=== PATIENT | female | born 1930 | race Caucasian/White ===

== ENCOUNTER → 2016-11-29 | Outpatient (CLI) | payer MEDICARE ==
[~2016-11-29] MED LIST: ALPR.25 PO; ASPI1TAB73 PO; AUGM500T7 PO; CENTTAB PO; LACTCAP8 PO; MACR100C2 PO; OMEP20TA PO; REST15CA PO; THERTAB27 PO
[2016-11-29 09:39] LABS: HEMATOCRIT 39.9 % (35.0-46.0); MEAN CELL VOLUME 90.1 FL (80.0-100.0); MEAN CORPUSCULAR HEMOGLOBIN 30.1 PG (27.0-34.0); MEAN CORPUSCULAR HGB CONC 33.4 % (32.0-36.0); PLATELET COUNT 203 TH/MM3 (150-450); RED BLOOD COUNT 4.43 MIL/MM3 (4.00-5.30); REVIEW FLAG FINAL; WHITE BLOOD COUNT 4.6 TH/MM3 (4.0-11.0)
[2016-11-29 10:08] LABS: ALKALINE PHOSPHATASE 76 U/L (45-117); ALT (GPT) 22 U/L (10-53); ANION GAP 8 MEQ/L (5-15); AST (GOT) 27 U/L (15-37); BICARBONATE 25.7 MEQ/L (21.0-32.0); BLOOD UREA NITROGEN 18 MG/DL (7-18); CHLORIDE 104 MEQ/L (98-107); GLOMERULAR FILTRATION RATE 53 ML/MIN (>89); GLUCOSE,FASTING 94 MG/DL (74-99); HDL CHOLESTEROL 87.9 MG/DL (40.0-60.0); LDL CHOLESTEROL 150 MG/DL (0-99); LDL CHOLESTEROL DIRECT 155 MG/DL (0-99); POTASSIUM 3.9 MEQ/L (3.5-5.1); SODIUM (NA) 138 MEQ/L (136-145); TOTAL BILIRUBIN ADULT 0.7 MG/DL (0.2-1.0)
== END ==
LOC: PLAB 06:44
PROVIDERS: ATTEND Internal Medicine
DX: I10 Essential (primary) hypertension (principal); E78.5 Hyperlipidemia, unspecified
CPT/HCPCS: 36415; 80053; 80061; 83721; 85027

== ENCOUNTER 2017-03-23 08:37 | Inpatient (IN) | payer MEDICARE ==
[~2017-03-23] VITALS: Ht 162.6 cm; Wt 73.0 kg
[2017-03-23] VITALS (11 sets, daily range): BP systolic 141–169; BP diastolic 63–91; PULSE 70–113; RESP 18–20; TEMP 98.8–99.9; O2SAT 91–98
[~2017-03-23 08:37] MED LIST changes: -ALPR.25 PO; -AUGM500T7 PO; -MACR100C2 PO; -REST15CA PO
[2017-03-23] MEDS ORDERED: MACR100C2 PO (08:42)
--- NOTE | 2017-03-23 08:55 | PD ---
HPI Chief Complaint: Allergic/Adverse Reaction Time Seen by Provider: 08:47 Travel History International Travel<30 days: No Contact w/Intl Traveler<30days: No Traveled to known affect area: No History of Present Illness HPI 87yo F with PMH of multiple allergies presents to the ED with c/o shakiness this morning. Pt has nausea and feels stressed. States her daughters were landing from [place] and she is nervous about it. Pt was started on nitrofurantoin yesterday for a UTI diagnosed in the PMD's office. Denies any fever, chest pain, sob, vomiting, abdominal pain, focal weakness or numbness. Pt has been here for shakiness before and has that as an adverse reaction to some medications. 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 UTI) Hepatitis: No Hiatal Hernia: Yes Immune Disorder: No Musculoskeletal: Yes (ARTHRITIS) Neurologic: Yes (TRANSIENT VERTIGO/ SYNCOPE) Psychiatric: Yes (CLAUSTROPHOBIA) Respiratory: Yes (TRANSIENT SOB, ? SLEEP APNEA) Thyroid Disease: No ?: Not Menopausal: Yes Dilation and Curettage (D&C): Yes (1993) Past Surgical History Abdominal Surgery: Yes (RIGHT HEMICOLECTOMY) AICD: No Appendectomy: Yes Body Medical Devices: N/A Cardiac Surgery: No Endocrine Surgery: No Eye Surgery: Yes (RIGHT CATARACT EXTRACT.) Genitourinary Surgery: Yes (LEFT ESWL) Gynecologic Surgery: Yes (D & C) Joint Replacement: No Oral Surgery: Yes (T & A) Pacemaker: No Thoracic Surgery: No Tonsillectomy: Yes Other Surgery: Yes (RT BREAST LUMPECTOMY) Social History Alcohol Use: Yes (RARELY) Tobacco Use: No Substance Use: No Allergies-Medications (Allergen,Severity, Reaction): Coded Allergies: Celestina (Unverified Allergy, Severe, SEVERE HEADACHES, 03/23/17) Cipro (Unverified Allergy, Severe, RASH, VERTIGO, 03/23/17) Claritin (Unverified Allergy, Severe, SEVERE HEADACHES, 03/23/17) Fentanyl (Verified Allergy, Severe, 03/23/17) DENIES ALLERGY 11/28/11 Meperidine (Verified Allergy, Severe, 03/23/17) Lexapro (Verified Allergy, Intermediate, TREMORS, ARMS & LEGS, 03/23/17) Remeron Sarah-Tab (Verified Allergy, Intermediate, TREMORS ARMS & LEGS, 03/23) Ceftin (Verified Allergy, Mild, N/V, 03/23/17) Codeine (Verified Allergy, Mild, N/V, 03/23/17) Percocet (Verified Allergy, Mild, N/V, 03/23/17) Reported Meds & Prescriptions Reported Meds & Active Scripts Active Reported Macrobid (Nitrofurantoin Monoh/Nitrofur Macro) 100 Mg Cap 100 Mg PO BID Probiotic (Lactobacillus Acidophilus) 1 Cap Cap 1 Cap PO DAILY Spencer Aspirin EC Low Dose (Aspirin) 81 Mg Tabdr 81 Mg PO DAILY PRN Omeprazole 20 Mg Tab 20 Mg PO DAILY Review of Systems Except as stated in HPI: all other systems reviewed are Neg Physical Exam Narrative GENERAL: 87yo F in mild distress. SKIN: Focused skin assessment warm/dry. No urticaria. HEAD: Atraumatic. Normocephalic. EYES: Pupils equal and round. EOMI. No scleral icterus. No injection or drainage. ENT: No nasal bleeding or discharge. Mucous membranes pink and moist. Patent airway. No tongue edema. NECK: Trachea midline. No JVD. CARDIOVASCULAR: Mildly tachycardic at 110bpm. No murmur appreciated. RESPIRATORY: No accessory muscle use. Clear to auscultation. Breath sounds equal bilaterally. GASTROINTESTINAL: Abdomen soft, TTP LLQ and suprapubic region. No rebound tenderness or guarding. MUSCULOSKELETAL: No obvious deformities. No clubbing. No cyanosis. No edema. NEUROLOGICAL: Awake and alert. No obvious cranial nerve deficits. Motor grossly within normal limits. Normal speech. AAOx3. Bilateral upper extremity tremors with movement, appears voluntary. No tremors at rest. PSYCHIATRIC: Anxious appearing. Data Data Last Documented VS Vital Signs Date Time Temp Pulse Resp B/P Pulse Ox O2 Delivery O2 Flow Rate FiO2 03/23/17 10:51 99.9 99 18 161/79 98 Nasal Cannula 2 Orders Complete Blood Count With Diff (03/23/17 08:47) Prothrombin Time / Inr (Pt) (03/23/17 08:47) Act Partial Throm Time (Ptt) (03/23/17 08:47) Urinalysis - C+S If Indicated (03/23/17 08:47) Ct Abd/Pel W Iv Contrast(Rout) (03/23/17 08:47) Iv Access Insert/Monitor (03/23/17 08:47) Ecg Monitoring (03/23/17 08:47) Oximetry (03/23/17 08:47) Ondansetron Inj (Zofran Inj) (03/23/17 09:00) Sodium Chloride 0.9% Flush (Ns Flush) (03/23/17 09:00) Electrocardiogram (03/23/17 08:47) Sodium Chlorid 0.9% 500 Ml Inj (Ns 500 M (03/23/17 09:00) Lactic Acid Sepsis Protocol (03/23/17 08:48) Ckmb (Isoenzyme) Profile (03/23/17 08:48) Troponin I (03/23/17 08:48) Comprehensive Metabolic Panel (03/23/17 08:55) Lipase (03/23/17 08:55) Chest, Single Ap (03/23/17 ) Ct Pulmonary Angiogram (03/23/17 ) Urine Culture (03/23/17 09:15) CKMB (03/23/17 08:55) CKMB% (03/23/17 08:55) Aztreonam Inj (Azactam Inj) (03/23/17 11:00) Iohexol 350 Inj (Omnipaque 350 Inj) (03/23/17 11:15) Admit Order (Ed Use Only) (03/23/17 11:27) Labs Laboratory Tests Test 03/23/17 03/23/17 08:55 09:15 White Blood Count 12.1 TH/MM3 Red Blood Count 4.61 MIL/MM3 Hemoglobin 13.7 GM/DL Hematocrit 40.5 % Mean Corpuscular Volume 87.9 FL Mean Corpuscular Hemoglobin 29.8 PG Mean Corpuscular Hemoglobin 33.9 % Concent Red Cell Distribution Width 13.5 % Platelet Count 175 TH/MM3 Mean Platelet Volume 7.2 FL Neutrophils (%) (Auto) % Lymphocytes (%) (Auto) % Monocytes (%) (Auto) % Eosinophils (%) (Auto) % Basophils (%) (Auto) % Neutrophils # (Auto) TH/MM3 Lymphocytes # (Auto) TH/MM3 Monocytes # (Auto) TH/MM3 Eosinophils # (Auto) TH/MM3 Basophils # (Auto) TH/MM3 CBC Comment AUTO DIFF Differential Total Cells 100 Counted Neutrophils % (Manual) 81 % Band Neutrophils % 14 % Lymphocytes % 3 % Monocytes % 2 % Neutrophils # (Manual) 11.5 TH/MM3 Differential Comment FINAL DIFF MANUAL Platelet Estimate NORMAL Platelet Morphology Comment NORMAL Red Cell Morphology Comment NORMAL Prothrombin Time 9.7 SEC Prothromb Time International 0.9 RATIO Ratio Activated Partial 22.9 SEC Thromboplast Time Sodium Level 137 MEQ/L Potassium Level 3.9 MEQ/L Chloride Level 100 MEQ/L Carbon Dioxide Level 25.5 MEQ/L Anion Gap 10 MEQ/L Blood Urea Nitrogen 17 MG/DL Creatinine 0.70 MG/DL Estimat Glomerular Filtration 79 ML/MIN Rate Random Glucose 127 MG/DL Lactic Acid Level 2.7 mmol/L Calcium Level 9.0 MG/DL Total Bilirubin 0.9 MG/DL Aspartate Amino Transf 41 U/L (AST/SGOT) Alanine Aminotransferase 32 U/L (ALT/SGPT) Alkaline Phosphatase 91 U/L Total Creatine Kinase 140 U/L Creatine Kinase MB 1.4 NG/ML Troponin I LESS THAN 0.02 NG/ML Total Protein 7.2 GM/DL Albumin 3.9 GM/DL Lipase 109 U/L Urine Collection Type CLEAN CATCH Urine Color YELLOW Urine Turbidity CLEAR Urine pH 7.0 Urine Specific [place] 1.014 Urine Protein NEG mg/dL Urine Glucose (UA) NEG mg/dL Urine Ketones NEG mg/dL Urine Occult Blood TRACE Urine Nitrite NEG Urine Bilirubin NEG Urine Leukocyte Esterase TRACE Urine WBC 9-14 /hpf Urine WBC Clumps RARE Urine Squamous Epithelial 0-5 /hpf Cells Urine Amorphous Sediment FEW Urine Bacteria OCC /hpf Microscopic Urinalysis Comment CULTURE INDICATED Urine Collection Time 0914 MDM Medical Decision Making Medical Screen Exam Complete: Yes Emergency Medical Condition: Yes Interpretation(s) EKG: Sinus tachycardia at 101bpm. LAD. No ST segment elevation or depression. Differential Diagnosis Anxiety vs. sepsis vs. medication reaction Narrative Course 87yo F with c/o shakiness and nausea and not feeling well today. Pt is a poor historian. Denies abdominal pain but states it is tender and winces on exam. Pt's saturating on room air fluctuates but does not go higher than 94%. Will obtain CT angio to r/o PE. Pt does not complain of sob or chest pain. Labs reviewed, leukocytosis at 12.1. Bandemia of 14. Lactic acid elevated at 2.7. Troponin negative. UA positive for WBC 9-14. Occasional urine bacteria. CXR showed minimal basal atelectasis. CT angio showed negative for PE. Mild bronchiectasis with peribronchial thickening. Minimal distal airway disease. Mildly decreased saturation may be due to bronchiectasis. CTa/p showed very mild prominence of renal collecting systems bilaterally without evidence of hydroureter. Uncertain clinical significance. No active findings. Pt given 500cc of IVF NS and heart rate was improved to 100bpm. However, it is now up at 114bpm. Will give another liter of NS IVF. Pt given aztreonam IV because of her allergies. Discussed with Dr. Crane and accepted for urosepsis. Critical Care Narrative Aggregate critical care time was 60 minutes. Time to perform other separately billable procedures was not included in the critical care time. My time did not include minutes spent treating any other patients simultaneously or on activities that did not directly contribute to the patient's treatment. The services I provided to this patient were to treat and/or prevent clinically significant deterioration that could result in: cardiovascular collapse or . I provided critical care services requiring my management, as noted below: Chart data review, documentation time, medication orders and management, vital sign assessments/reviewing monitor data, ordering and reviewing lab tests, ordering and interpreting/reviewing x-rays and diagnostic studies, care of the patient and discussion of the patient with the admitting physicians. Sepsis Criteria SIRS Criteria (2 or more): Heart rate over 90, WBC > 86637, < 4000 or > 10% bands Sepsis Criteria (SIRS+source): Infect source susp/known Severe Sepsis (+one): Lactate >2 Diagnosis Primary Impression: Sepsis Qualified Code: A41.9 - Sepsis, due to unspecified organism Admitting Information Admitting Physician Requests: Kaelyn Weller DO Mar 23, 2017 08:55
[2017-03-23] MEDS ORDERED: SODIUM CHLORID 0.9% 500 ML INJ 500 ML IV ONE (09:00)
[2017-03-23] MEDS ORDERED: ONDANSETRON HCL 4 MG/2 ML VIAL IVP ONE (09:00)
[2017-03-23] MEDS ORDERED: SODIUM CHLORIDE 0.9% FLUSH 10 ML FLUSH IV FLUSH PRN ×2 (09:00→11:45)
[2017-03-23 09:14] LABS: HEMATOCRIT 40.5 % (35.0-46.0); MEAN CELL VOLUME 87.9 FL (80.0-100.0); MEAN CORPUSCULAR HEMOGLOBIN 29.8 PG (27.0-34.0); MEAN CORPUSCULAR HGB CONC 33.9 % (32.0-36.0); PLATELET COUNT 175 TH/MM3 (150-450); RED BLOOD COUNT 4.61 MIL/MM3 (4.00-5.30); RED CELL DISTRIBUTION WIDTH 13.5 % (11.6-17.2); WHITE BLOOD COUNT 12.1 TH/MM3 (4.0-11.0)
[2017-03-23 09:16] LABS: HEMO FLAGS AUTO DIFF
[2017-03-23 09:22] LABS: BLOOD, URINE TRACE (NEG); GLUCOSE,URINE NEG (NEG); KETONE, URINE NEG (NEG); NITRITE,URINE NEG (NEG)
[2017-03-23 09:23] LABS: APTT (PATIENT) 22.9 SEC (24.3-30.1); INTERNATIONAL NORMALIZED RATIO 0.9 RATIO; PROTHROMBIN TIME - PATIENT 9.7 SEC (9.8-11.6)
[2017-03-23 09:24] LABS: METHOD OF COLLECTION CLEAN CATCH; URINE COLOR YELLOW (YELLW/STRAW)
[2017-03-23 09:30] LABS: BACTERIA, URINE OCC /hpf; COMMENT (UR) CULTURE INDICATED; COMMENT2 (UR) MUCOUS PRESENT; CULTURE IF INDICATED CULTURE INDICATED; SQUAMOUS EPITHELIAL CELL URINE 0-5 /hpf (0-5)
[2017-03-23 09:46] LABS: BLOOD UREA NITROGEN 17 MG/DL (7-18); CHLORIDE 100 MEQ/L (98-107); GLOMERULAR FILTRATION RATE 79 ML/MIN (>89); POTASSIUM 3.9 MEQ/L (3.5-5.1); SODIUM (NA) 137 MEQ/L (136-145)
--- NOTE | 2017-03-23 09:46 | RADRPT ---
EXAM DATE/TIME: 03/23/2017 09:26 [facility] COMPARISON: No previous studies available for comparison. INDICATIONS : Short of breath, weakness. nausea. MEDICAL HISTORY : Hypercholesterolemia. Carcinoma, breast. Gastroesophageal reflux disease. Arthritis. Sleep apnea, Hiatal hernia. SURGICAL HISTORY : Appendectomy. Tonsillectomy. Right breast lumpectomy. D&C. Right hemicolectomy. ENCOUNTER: Initial ACUITY: 2 days PAIN SCORE: 0/10 LOCATION: chest FINDINGS: A single view of the chest demonstrates the lungs to be symmetrically aerated without evidence of mas s, infiltrate or effusion. Minimal basal atelectasis. The cardiomediastinal contours are unremarkabl e. Osseous structures are intact. CONCLUSION: 1. Minimal basal atelectasis. No consolidation or effusion. Surgical clips right axillary region. Krzysztof Amador MD on March 23, 2017 at 9:42 Board Certified Radiologist. This report was verified electronically.
[2017-03-23 09:55] LABS: BANDS 14 % (0-6); NEUTROPHIL # MANUAL DIFF 11.5 TH/MM3 (1.8-7.7); PLATELET ESTIMATE SMEAR NORMAL (NORMAL); PLATELET MORPHOLOGY NORMAL (NORMAL); POLYS (SEG NEUTROPHILS) 81 % (16-70); SCAN/DIFF FINAL DIFF MANUAL; WBC DIFF SAMPLE 100
[2017-03-23 10:12] LABS: BICARBONATE 25.5 MEQ/L (21.0-32.0)
[2017-03-23 10:14] LABS: ALT (GPT) 32 U/L (10-53); ANION GAP 10 MEQ/L (5-15)
[2017-03-23 10:16] LABS: TOTAL BILIRUBIN ADULT 0.9 MG/DL (0.2-1.0)
[2017-03-23 10:17] LABS: ALKALINE PHOSPHATASE 91 U/L (45-117); CREATINE KINASE 140 U/L (26-192)
[2017-03-23 10:23] LABS: AST (GOT) 41 U/L (15-37)
[2017-03-23 10:42] LABS: CKMB 1.4 NG/ML (0.5-3.6)
--- NOTE | 2017-03-23 10:59 | RADRPT ---
EXAM DATE/TIME: 03/23/2017 10:27 [facility] COMPARISON: No previous studies available for comparison. INDICATIONS : Hypoxic. IV CONTRAST: 85 cc Omnipaque 350 (iohexol) IV ; Cumulative dose for multiple exams. RADIATION DOSE: 16.07 CTDIvol (mGy) MEDICAL HISTORY : Carcinoma, breast. Gastroesophageal reflux disease. Hernia, hiatal.Renal stone. SURGICAL HISTORY : Appendectomy. Mastectomy, right. ENCOUNTER: Initial ACUITY: 1 day PAIN SCALE: 0/10 LOCATION: chest TECHNIQUE: Volumetric scanning of the chest was performed using a pulmonary embolism protocol MIP images were re constructed. Using automated exposure control and adjustment of the mA and/or kV according to patien t size, radiation dose was kept as low as reasonably achievable to obtain optimal diagnostic quality images. FINDINGS: No filling defects identified to suggest pulmonary embolus. There is a calcified granuloma in the rig ht upper lobe. There is mild cylindrical bronchiectasis and peribronchial thickening especially in th e lobe but also in the right middle lobe. Calcified granuloma also present left lower lobe. No signif icant lung consolidation. A pleuropericardial effusion. No hilar, mediastinal axillary adenopathy. Ferreira rgical clips present in the right axillary region. His previous lumpectomy changes in the right breas t. Moderate coronary calcifications. Small hiatal hernia. No acute findings in the upper abdomen. CONCLUSION: 1. Negative for pulmonary embolus. 2. Mild bronchiectasis with peribronchial thickening. Minimal distal airway disease. No effusions or adenopathy. 3. Moderate to severe coronary calcifications. Krzysztof Amador MD on March 23, 2017 at 10:52 Board Certified Radiologist. This report was verified electronically.
[2017-03-23] MEDS ORDERED: AZTREONAM INJ 1,000 MG in SODIUM CHLORIDE 0.9% INJ 100 ML IV ONE (11:00)
[2017-03-23 11:04] LABS: LACTIC ACID GHOST NOT REPORTABLE
[2017-03-23] MEDS ORDERED: IOHEXOL 350 MG/ML 10 ML VIAL (for RAD DIAG) IV ONE (11:15)
[2017-03-23] MEDS ORDERED: SODIUM CHLOR 0.9% 1000 ML INJ 1,000 ML IV ONE (11:30)
--- NOTE | 2017-03-23 11:33 | RADRPT ---
EXAM DATE/TIME: 03/23/2017 10:27 [facility] COMPARISON: No previous studies available for comparison. INDICATIONS : Abdominal pain. General weakness. IV CONTRAST: 85 cc Omnipaque 350 (iohexol) IV ; Cumulative dose for multiple exams. ORAL CONTRAST: No oral contrast ingested. RADIATION DOSE: 19.86 CTDIvol (mGy) MEDICAL HISTORY : Carcinoma, breast. Gastroesophageal reflux disease. Hernia, hiatal.Renal stone. SURGICAL HISTORY : Appendectomy. Mastectomy, right. ENCOUNTER: Initial ACUITY: 2 days PAIN SCALE: 2/10 LOCATION: Abdomen TECHNIQUE: Volumetric scanning of the abdomen and pelvis was performed. Using automated exposure control and ad justment of the mA and/or kV according to patient size, radiation dose was kept as low as reasonably achievable to obtain optimal diagnostic quality images. FINDINGS: LOWER LUNGS: Calcified pleural plaque at the right lung base. Minimal bibasilar atelectasis. LIVER: Homogeneous density without lesion. There is no dilation of the biliary tree. Multiple small layerin g gallstones in the gallbladder which otherwise appears unremarkable by CT. SPLEEN: Normal size without lesion. PANCREAS: Within normal limits. KIDNEYS: Kidneys demonstrate symmetrical enhancement. There is slight prominence of the renal collecting syste ms and bilaterally, right more than left. The proximal ureters appear normal in caliber. There are no radiopaque renal calculi. Multiple bilateral small hypodense cystic lesions are too small to fully c haracterize. ADRENAL GLANDS: Within normal limits. VASCULAR: There is no aortic aneurysm. Abdominal aorta is heavily calcified with heavy calcified visceral branc h vessels. BOWEL/MESENTERY: Postsurgical features of prior appendectomy. There is mild sigmoid diverticulosis without significant inflammatory changes to suggest diverticulitis. The bowel appears grossly unremarkable. ABDOMINAL WALL: Within normal limits. RETROPERITONEUM: There is no lymphadenopathy. BLADDER: No wall thickening or mass. REPRODUCTIVE: Within normal limits for age. INGUINAL: There is no lymphadenopathy or hernia. 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 No focal abnormal lytic or blastic lesion. There is an apparent neurostimulator with battery pack in the right gluteal region. CONCLUSION: 1. Very mild prominence of the renal collecting systems bilaterally without evidence for hydroureter. This may reflect residual pelviectasis if patient has a history of prior hydronephrosis. Otherwise, this is of uncertain clinically significance. Clinical correlation is recommended. 2. Otherwise, no definitive findings to explain patient's symptoms. 3. Ancillary findings include cholelithiasis, mild sigmoid diverticulosis and degenerative spondylosi s of the lumbar spine. Mau Boo MD on March 23, 2017 at 11:12 Board Certified Radiologist. This report was verified electronically.
[2017-03-23] MEDS ORDERED: ASPIRIN EC 81 MG TABEC PO PRN (11:45)
[2017-03-23] MEDS ORDERED: MAGNESIUM HYDROXIDE SUSP 30 ML CUP PO PRN (11:45)
[2017-03-23] MEDS ORDERED: ONDANSETRON HCL 4 MG/2 ML VIAL IV PRN (11:45)
[2017-03-23] MEDS ORDERED: CALCIUM CARBONATE 500 MG CHEWABLE TAB CHEW PRN (11:45)
[2017-03-23] MEDS ORDERED: ACETAMINOPHEN 325 MG TAB PO PRN (11:45)
[2017-03-23] MEDS ORDERED: ACETAMINOPHEN 500 MG CPLT PO ONE (11:45)
[2017-03-23] MEDS: SODIUM CHLOR 0.9% 1000 ML INJ 1,000 ML IV SCH (14:08)
--- NOTE | 2017-03-23 14:14 | HHI.HP ---
HPI Service [facility] Hospitalists Primary Care Physician Ethan Friedman MD Admission Diagnosis Urosepsis Diagnoses: Chief Complaint: chills Travel History International Travel<30 Days: No Contact w/Intl Traveler <30 Da: No Traveled to Known Affected Are: No Sepsis Criteria SIRS Criteria (2 or more): Heart rate over 90, WBC > 05640, < 4000 or > 10% bands Sepsis Criteria (SIRS+source): Infect source susp/known Severe Sepsis (+one): Lactate >2 Criteria Outcome: Meets sepsis criteria History of Present Illness This is an 87-year-old female with past medical history significant for frequent urinary tract infections, urinary incontinence status post bladder stimulator implantation who presents to [facility] complaining of new onset of chills and feeling very cold and weakness which started 2-3 days ago. The patient states he went to see her primary doctor, Dr. Angeles who prescribed Macrobid after diagnosing the urinary tract infection. Patient also complains of nausea, states she vomited once in emergency department. Patient states that she did not have dysuria which is the usual way her urinary tract infections present. Denies cough, denies diarrhea. Review of Systems As per history of present illness, other systems reviewed and negative. Past Family Social History Past Medical History 1. Breast cancer 2. GERD 3. Constipation 4. Frequent UTI 5. Hiatal hernia 6. Arthritis 7. Transient vertigo 8. Claustrophobia 9. Obstructive sleep apnea 10. Pneumonia 11. Claustrophobia. Past Surgical History 1. Right hemicolectomy for obstructing colon mass (reportedly benign) 2. Appendectomy 3. Bilateral cataract 4. Tonsillectomy 5. Right breast lumpectomy 6. D&C in 1993 Reported Medications Macrobid (Nitrofurantoin Monoh/Nitrofur Macro) 100 Mg Cap 100 Mg PO BID Probiotic (Lactobacillus Acidophilus) 1 Cap Cap 1 Cap PO DAILY Spencer Aspirin EC Low Dose (Aspirin) 81 Mg Tabdr 81 Mg PO DAILY PRN Omeprazole 20 Mg Tab 20 Mg PO DAILY Allergies: Coded Allergies: Celestina (Unverified Allergy, Severe, SEVERE HEADACHES, 03/23/17) Cipro (Unverified Allergy, Severe, RASH, VERTIGO, 03/23/17) Claritin (Unverified Allergy, Severe, SEVERE HEADACHES, 03/23/17) Fentanyl (Verified Allergy, Severe, 03/23/17) DENIES ALLERGY 11/28/11 Meperidine (Verified Allergy, Severe, 03/23/17) Lexapro (Verified Allergy, Intermediate, TREMORS, ARMS & LEGS, 03/23/17) Remeron Sarah-Tab (Verified Allergy, Intermediate, TREMORS ARMS & LEGS, 03/23) Ceftin (Verified Allergy, Mild, N/V, 03/23/17) Codeine (Verified Allergy, Mild, N/V, 03/23/17) Percocet (Verified Allergy, Mild, N/V, 03/23/17) Active Ordered Medications Current Medications Medications (Trade) Dose Ordered Sig/Shakira Route Start Time Stop Time Status Last Admin (NS 1000 ml Inj) 1,000 ml @ 75 mls/hr [id number] IV 03/23/17 11:37 (NS Flush) 2 ml UNSCH PRN IV FLUSH 03/23/17 11:45 (NS Flush) 2 ml BID IV FLUSH 03/23/17 21:00 Pantoprazole Sodium 40 mg 40 mg DAILY PO 03/24/17 09:00 (Azactam Inj/NS Inj) 100 ml @ 200 mls/hr Q12H IV 03/23/17 23:00 (Tylenol) 650 mg Q4H PRN PO 03/23/17 11:45 (Zofran Inj) 4 mg Q6H PRN IV 03/23/17 11:45 (Milk Of Magnesia Liq) 30 ml DAILY PRN PO 03/23/17 11:45 (Tums Chew) 1,000 mg TID PRN CHEW 03/23/17 11:45 (Restoril) 15 mg HS PRN PO 03/23/17 11:45 (Ecotrin Ec) 81 mg DAILY PRN PO 03/23/17 11:45 Family History Patient's mother had an OR and tach from poor cardiac cancer. Patient's father also had an OR. Social History Patient drinks alcohol rarely. Denies tobacco use Denies illicit substance use. The patient is a and states has 2 daughters which are still alive. The patient lost 2 sons. One when he was 9 years old and was run over by a truck. The other one from complications of AIDS. Physical Exam Vital Signs Vital Signs Date Time Temp Pulse Resp B/P Pulse Ox O2 Delivery O2 Flow Rate FiO2 03/23/17 13:00 99.1 95 18 143/73 95 03/23/17 12:27 100 18 141/63 98 Nasal Cannula 2 03/23/17 10:51 99.9 99 18 161/79 98 Nasal Cannula 2 03/23/17 09:07 104 18 169/72 93 Room Air 03/23/17 08:40 99.3 113 18 149/91 95 Physical Exam GENERAL: This is a well-nourished, well-developed patient, in no apparent distress. SKIN: No rashes, ecchymoses or lesions. Cool and dry. HEAD: Atraumatic. Normocephalic. No temporal or scalp tenderness. EYES: Pupils equal round and reactive. Extraocular motions intact. No scleral icterus. No injection or drainage. ENT: Nose without bleeding, purulent drainage or septal hematoma. Throat without erythema, tonsillar hypertrophy or exudate. Uvula midline. Airway patent. NECK: Trachea midline. No JVD or lymphadenopathy. Supple, nontender, no meningeal signs. CARDIOVASCULAR: Regular rate and rhythm without murmurs, gallops, or rubs. RESPIRATORY: Clear to auscultation. Breath sounds equal bilaterally. No wheezes , rales, or rhonchi. GASTROINTESTINAL: Abdomen soft, non-tender, nondistended. No hepato-splenomegaly , or palpable masses. No guarding. There is the presence of a bladder stimulator on the right lower back. MUSCULOSKELETAL: Extremities without clubbing, cyanosis, or edema. No joint tenderness, effusion, or edema noted. No calf tenderness. Negative Homans sign bilaterally. NEUROLOGICAL: Awake and alert. Cranial nerves II through XII intact. Motor and sensory grossly within normal limits. Five out of 5 muscle strength in all muscle groups. Normal speech. Laboratory Laboratory Tests Test 03/23/17 03/23/17 03/23/17 08:55 09:15 11:50 White Blood Count 12.1 Red Blood Count 4.61 Hemoglobin 13.7 Hematocrit 40.5 Mean Corpuscular Volume 87.9 Mean Corpuscular Hemoglobin 29.8 Mean Corpuscular Hemoglobin 33.9 Concent Red Cell Distribution Width 13.5 Platelet Count 175 Mean Platelet Volume 7.2 Neutrophils (%) (Auto) Lymphocytes (%) (Auto) Monocytes (%) (Auto) Eosinophils (%) (Auto) Basophils (%) (Auto) Neutrophils # (Auto) Lymphocytes # (Auto) Monocytes # (Auto) Eosinophils # (Auto) Basophils # (Auto) CBC Comment AUTO DIFF Differential Total Cells 100 Counted Neutrophils % (Manual) 81 Band Neutrophils % 14 Lymphocytes % 3 Monocytes % 2 Neutrophils # (Manual) 11.5 Differential Comment FINAL DIFF MANUAL Platelet Estimate NORMAL Platelet Morphology Comment NORMAL Red Cell Morphology Comment NORMAL Prothrombin Time 9.7 Prothromb Time International 0.9 Ratio Activated Partial 22.9 Thromboplast Time Sodium Level 137 Potassium Level 3.9 Chloride Level 100 Carbon Dioxide Level 25.5 Anion Gap 10 Blood Urea Nitrogen 17 Creatinine 0.70 Estimat Glomerular Filtration 79 Rate Random Glucose 127 Lactic Acid Level 2.7 2.0 Calcium Level 9.0 Total Bilirubin 0.9 Aspartate Amino Transf 41 (AST/SGOT) Alanine Aminotransferase 32 (ALT/SGPT) Alkaline Phosphatase 91 Total Creatine Kinase 140 Creatine Kinase MB 1.4 Troponin I LESS THAN 0.02 Total Protein 7.2 Albumin 3.9 Lipase 109 Urine Collection Type CLEAN CATCH Urine Color YELLOW Urine Turbidity CLEAR Urine pH 7.0 Urine Specific [place] 1.014 Urine Protein NEG Urine Glucose (UA) NEG Urine Ketones NEG Urine Occult Blood TRACE Urine Nitrite NEG Urine Bilirubin NEG Urine Leukocyte Esterase TRACE Urine WBC 9-14 Urine WBC Clumps RARE Urine Squamous Epithelial 0-5 Cells Urine Amorphous Sediment FEW Urine Bacteria OCC Microscopic Urinalysis Comment CULTURE INDICATED Urine Collection Time 0914 Date/Time Procedure Status Source Growth 03/23/17 12:30 Aerobic Blood Culture Received Blood Peripheral Pending 03/23/17 12:30 Anaerobic Blood Culture Received Blood Peripheral Pending 03/23/17 09:15 Urine Culture Received Urine Clean Catch Pending Result Diagram: 03/23/17 0855 03/23/1755 Imaging Last Impressions Abdomen/Pelvis CT 03/23/17 0847 Signed Impressions: Service Date/Time: , March 23, 2017 10:27 - CONCLUSION: 1. Very mild prominence of the renal collecting systems bilaterally without evidence for hydroureter. This may reflect residual pelviectasis if patient has a history of prior hydronephrosis. Otherwise, this is of uncertain clinically significance. Clinical correlation is recommended. 2. Otherwise, no definitive findings to explain patient's symptoms. 3. Ancillary findings include cholelithiasis, mild sigmoid diverticulosis and degenerative spondylosis of the lumbar spine. Mau Boo MD Chest X-Ray 03/23/17 0000 Signed Impressions: Service Date/Time: March 09:26 - CONCLUSION: 1. Minimal basal atelectasis. No consolidation or effusion. Surgical clips right axillary region. Krzysztof Amador MD CT Angiography 03/23/17 0000 Signed Impressions: Service Date/Time: , March 23, 2017 10:27 - CONCLUSION: 1. Negative for pulmonary embolus. 2. Mild bronchiectasis with peribronchial thickening. Minimal distal airway disease. No effusions or adenopathy. 3. Moderate to severe coronary calcifications. Krzysztof Amador MD Reviewed by de Septic Shock Reassessment Heart: Regular rate and rhythm Lungs: Clear Skin: Warm Peripheral Pulses: Bounding Right Radial Bounding Left Radial Capillary Refill: <2 seconds Assessment and Plan Problem List: (1) Severe sepsis ICD Code: A41.9 Status: Acute Plan: Present on admission. Patient with leukocytosis, 14% bands, tachycardia. Admitted the patient to medical floor Place on IV normal saline for hydration, continue IV antibiotics, the patient has several antibiotic allergies, patient has being given IV estrogen am in the emergency department. Continue Follow-up blood cultures and urine cultures obtained emergency department. (2) UTI (urinary tract infection) ICD Code: N39.0 Status: Acute Plan: Patient has history of frequent UTIs. Follows up as outpatient with a urologist - Dr Kumar Continue IV antibiotics as above. (3) Leukocytosis ICD Code: D72.829 Status: Acute Plan: 12.1 K on admission. Likely secondary to sepsis secondary to UTI. Monitor WBC. (4) Bandemia ICD Code: D72.825 Status: Acute Plan: As above (5) Elevated lactic acid level ICD Code: R79.89 Status: Acute Plan: Due to sepsis, secondary to UTI. At it acid 2.7 admission, 2.0 on repeat lab. (6) Hyperglycemia ICD Code: R73.9 Status: Acute Plan: Patient states is prediabetic. We'll check hemoglobin A1c. We'll monitor Accu-Cheks and cover elevated blood sugars with SSI with insulin NovoLog as needed. Assessment and Plan GI prophylaxis: Will place on PPI DVT prophylaxis: We'll place on Lovenox continuously. Discussed Condition With Patient, RN, ED physician. Physician Certification 2 Midnight Certification Type: Admission for Inpatient Services Order for Inpatient Services The services are ordered in accordance with Medicare regulations or non- Medicare payer requirements, as applicable. In the case of services not specified as inpatient-only, they are appropriately provided as inpatient services in accordance with the 2-midnight benchmark. Estimated LOS (days): 2 days is the estimated time the patient will need to remain in the hospital, assuming treatment plan goals are met and no additional complications. Post-Hospital Plan: Not yet determined Problem Qualifiers (1) UTI (urinary tract infection): Qualified Code: N30.00 - Acute cystitis without hematuria (2) Leukocytosis: Qualified Code: D72.825 - Bandemia Francisco Isabel MD Mar 23, 2017 14:14
--- NOTE | 2017-03-23 14:26 | EKG ---
Date Performed: 03/23/2017 Time Performed: 09:00:58 PTAGE: 87 years EKG: SINUS TACHYCARDIA NONSPECIFIC T-WAVE ABNORMALITY ABNORMAL RHYTHM ECG Compared to PREVIOUS TRACING , the sinus tachcardia is new. PREVIOUS TRACIN03/16/2015 11.24 DOCTOR: Lorena Contreras Interpretating Date/Time 03/23/2017 14:26:32
[2017-03-23] MEDS: HEPARIN SODIUM - SQ 10,000 UNITS/ML VIAL SQ SCH (15:38)
[2017-03-23] MEDS ORDERED: IBUPROFEN 400 MG TAB PO ONE (20:30)
[2017-03-23] MEDS: SODIUM CHLORIDE 0.9% FLUSH 10 ML FLUSH IV FLUSH SCH (21:00)
[2017-03-23] MEDS: TEMAZEPAM 15 MG CAP PO PRN (21:03)
[2017-03-23] MEDS: AZTREONAM INJ 1,000 MG in SODIUM CHLORIDE 0.9% INJ 100 ML IV SCH (23:24)
[2017-03-24] VITALS (10 sets, daily range): BP systolic 106–154; BP diastolic 59–88; PULSE 62–84; RESP 14–20; TEMP 96.5–99.1; O2SAT 93–100
[2017-03-24] MEDS: SODIUM CHLOR 0.9% 1000 ML INJ 1,000 ML IV SCH ×2 (00:57→05:03)
[2017-03-24] MEDS: HEPARIN SODIUM - SQ 10,000 UNITS/ML VIAL SQ SCH ×2 (03:00→14:08)
[2017-03-24 06:54] LABS: AUTOMATED NEUTROPHIL # 3.1 TH/MM3 (1.8-7.7); BASOPHIL % 0.8 % (0.0-2.0); EOSINOPHIL # 0.1 TH/MM3 (0-0.4); EOSINOPHIL % 1.3 % (0.0-4.0); HEMATOCRIT 37.3 % (35.0-46.0); HEMO FLAGS DIFF FINAL; LYMPH % 26.6 % (9.0-44.0); LYMPHOCYTE # 1.3 TH/MM3 (1.0-4.8); MEAN CELL VOLUME 88.3 FL (80.0-100.0); MEAN CORPUSCULAR HEMOGLOBIN 28.8 PG (27.0-34.0); MEAN CORPUSCULAR HGB CONC 32.6 % (32.0-36.0); MONO % 10.1 % (0.0-8.0); NEUT % 61.2 % (16.0-70.0); PLATELET COUNT 152 TH/MM3 (150-450); RED BLOOD COUNT 4.22 MIL/MM3 (4.00-5.30); RED CELL DISTRIBUTION WIDTH 13.4 % (11.6-17.2)
[2017-03-24 06:55] LABS: CHLORIDE 108 MEQ/L (98-107); POTASSIUM 4.1 MEQ/L (3.5-5.1); SODIUM (NA) 141 MEQ/L (136-145)
[2017-03-24 07:04] LABS: ANION GAP 6 MEQ/L (5-15); BICARBONATE 26.8 MEQ/L (21.0-32.0); BLOOD UREA NITROGEN 10 MG/DL (7-18)
[2017-03-24 07:07] LABS: GLOMERULAR FILTRATION RATE 82 ML/MIN (>89)
[2017-03-24] MEDS: PANTOPRAZOLE SOD 40 MG DELAYED RELEASE TAB PO SCH (08:34)
[2017-03-24] MEDS: SODIUM CHLORIDE 0.9% FLUSH 10 ML FLUSH IV FLUSH SCH ×2 (08:40→21:00)
[2017-03-24] MEDS: AZTREONAM INJ 1,000 MG in SODIUM CHLORIDE 0.9% INJ 100 ML IV SCH (11:41)
--- NOTE | 2017-03-24 13:19 | HHI.PR ---
Subjective Remarks patient feels better denies fevers/chills denies cp Objective Vitals Vital Signs Date Time Temp Pulse Resp B/P Pulse Ox O2 Delivery O2 Flow Rate FiO2 03/24/17 12:00 97.9 72 20 106/67 95 03/24/17 09:19 98 Nasal Cannula 2.00 03/24/17 08:00 67 03/24/17 08:00 97.6 62 20 144/81 97 03/24/17 04:00 99.1 77 18 113/59 100 03/24/17 00:00 99.1 80 18 152/88 95 03/23/17 23:38 85 03/23/17 22:40 70 03/23/17 21:05 94 Nasal Cannula 2.00 03/23/17 20:00 99.7 110 18 160/83 91 03/23/17 16:06 98 Nasal Cannula 2.00 03/23/17 16:00 98.8 87 20 145/77 94 I/O 03/23/17 03/23/17 03/23/17 03/24/17 03/24/17 03/24/17 07:00 15:00 23:00 07:00 15:00 23:00 Intake Total 1925 ml 210 ml 1031 ml Output Total 1100 ml Balance 825 ml 210 ml 1031 ml Intake Oral 425 ml IV Total 1500 ml 210 ml 1031 ml Output Urine Total 1100 ml # Voids 2 # Bowel Movements 0 Result Diagram: 03/24/17 0623 03/24/17 0623 Imaging Last Impressions Abdomen/Pelvis CT 03/23/17 0847 Signed Impressions: Service Date/Time: March 10:27 - CONCLUSION: 1. Very mild prominence of the renal collecting systems bilaterally without evidence for hydroureter. This may reflect residual pelviectasis if patient has a history of prior hydronephrosis. Otherwise, this is of uncertain clinically significance. Clinical correlation is recommended. 2. Otherwise, no definitive findings to explain patient's symptoms. 3. Ancillary findings include cholelithiasis, mild sigmoid diverticulosis and degenerative spondylosis of the lumbar spine. Mau Boo MD Chest X-Ray 03/23/17 0000 Signed Impressions: Service Date/Time: March 09:26 - CONCLUSION: 1. Minimal basal atelectasis. No consolidation or effusion. Surgical clips right axillary region. Krzysztof Amador MD CT Angiography 03/23/17 0000 Signed Impressions: Service Date/Time: March 10:27 - CONCLUSION: 1. Negative for pulmonary embolus. 2. Mild bronchiectasis with peribronchial thickening. Minimal distal airway disease. No effusions or adenopathy. 3. Moderate to severe coronary calcifications. Krzysztof Amador MD Objective Remarks GENERAL: This is a well-nourished, well-developed patient, in no apparent distress. SKIN: No rashes, ecchymoses or lesions. Cool and dry. HEAD: Atraumatic. Normocephalic. No temporal or scalp tenderness. EYES: Pupils equal round and reactive. Extraocular motions intact. No scleral icterus. No injection or drainage. ENT: Nose without bleeding, purulent drainage or septal hematoma. Throat without erythema, tonsillar hypertrophy or exudate. Uvula midline. Airway patent. NECK: Trachea midline. No JVD or lymphadenopathy. Supple, nontender, no meningeal signs. CARDIOVASCULAR: Regular rate and rhythm without murmurs, gallops, or rubs. RESPIRATORY: Clear to auscultation. Breath sounds equal bilaterally. No wheezes , rales, or rhonchi. GASTROINTESTINAL: Abdomen soft, non-tender, nondistended. No hepato-splenomegaly , or palpable masses. No guarding. There is the presence of a bladder stimulator on the right lower back. MUSCULOSKELETAL: Extremities without clubbing, cyanosis, or edema. No joint tenderness, effusion, or edema noted. No calf tenderness. Negative Homans sign bilaterally. NEUROLOGICAL: Awake and alert. Cranial nerves II through XII intact. Motor and sensory grossly within normal limits. Five out of 5 muscle strength in all muscle groups. Normal speech. Medications and IVs Current Medications Medications (Trade) Dose Ordered Sig/Shakira Route Start Time Stop Time Status Last Admin (NS Flush) 2 ml UNSCH PRN IV FLUSH 03/23/17 11:45 (NS Flush) 2 ml BID IV FLUSH 03/23/17 21:00 Pantoprazole Sodium 40 mg 40 mg DAILY PO 03/24/17 09:00 03/24/17 08:34 (Azactam Inj/NS Inj) 100 ml @ 200 mls/hr Q12H IV 03/23/17:00 03/24/17 11:41 (Tylenol) 650 mg Q4H PRN PO 03/23/17 11:45 (Zofran Inj) 4 mg Q6H PRN IV 03/23/17 11:45 (Milk Of Magnjustyn Liq) 30 ml DAILY PRN PO 03/23/17 11:45 (Tums Chew) 1,000 mg TID PRN CHEW 03/23/17 11:45 (Restoril) 15 mg HS PRN PO 03/23/17 11:45 03/23/17 21:03 (Ecotrin Ec) 81 mg DAILY PRN PO 03/23/17 11:45 (Heparin Inj) 5,000 units Q12H SQ 03/23/17 15:00 03/24/17 03:00 Urinary Catheter: No Vascular Central Line Catheter: No A/P Problem List: (1) Severe sepsis ICD Code: A41.9 Status: Acute Plan: Present on admission. Patient with leukocytosis, 14% bands, tachycardia. Admitted the patient to medical floor Continue normal saline, IV aztreonam Blood cultures negative 1. Urine culture pending We'll consult ID for advice on oral antibiotic therapy given that the patient has history of multiple antibiotic allergies. (2) UTI (urinary tract infection) ICD Code: N39.0 Status: Acute Plan: Patient has history of frequent UTIs. Follows up as outpatient with a urologist - Dr Kumar Continue IV antibiotics as above. (3) Leukocytosis ICD Code: D72.829 Status: Acute Plan: Previously 2.1 on admission. Now resolved. Continue to monitor CBC. (4) Bandemia ICD Code: D72.825 Status: Acute Plan: Bandemia has resolved with current treatment. (5) Elevated lactic acid level ICD Code: R79.89 Status: Acute Plan: Due to sepsis, secondary to UTI. Resolved after IV fluid administration (6) Hyperglycemia ICD Code: R73.9 Status: Acute Plan: Patient states is prediabetic. Hemoglobin A1c pending. Blood sugar stable. Continue to monitor Accu-Cheks and cover elevated blood sugars with SSI with insulin NovoLog as needed. Assessment and Plan GI prophylaxis: PPI. DVT prophylaxis. Heparin simultaneously, SCDs. Discharge Planning Discharge pending urine culture results. Pending ID consult. Problem Qualifiers (1) UTI (urinary tract infection): Qualified Code: N30.00 - Acute cystitis without hematuria (2) Leukocytosis: Qualified Code: D72.825 - Bandemia Francisco Isabel MD Mar 24, 2017 13:19
--- NOTE | 2017-03-24 15:18 | PD.CONS ---
History of Present Illness Service Infectious disease Consult Requested By Dr Crane Reason for Consult Evaluate patient with UTI, sepsis, has antibiotic allergies Primary Care Physician Ethan Friedman MD Diagnoses: History of Present Illness Patient seen and examined. Records reviewed. Patient is an 87-year-old female presented to the hospital for further evaluation of episodes of fever and chills and rigors. This first started about 4 days prior to admission. She did not have any associated signs and symptoms as far as respiratory, GI or any urinary complaint at that time. Patient had a recent implantation of a bladder stimulator about a month ago and she called the rep of the stimulator to find out is the shaking could be one of the effects from the stimulator. She was told that usually patient can have pain in the right lower extremity or in the back and the patient denies any problem like that. She was advised to see her primary care physician who she saw about 2 days prior to admission. Some workup was done in the office and she was diagnosed to have a urinary tract infection and was given Macrobid. She was surprised because in the past when she would have a urinary tract infection she would usually have dysuria. This is the first time that she had this kind of problem. On the day of admission she had shaking chills again, and so she presented to the hospital for further evaluation and treatment. Highest temperature since admission has been close to 100. Her WBC was mildly elevated. Her urinalysis did show pyuria. Patient is allergic to quinolone and gets rash and vertigo. She has side effects from Ceftin and had nausea and vomiting. Patient has been evaluated extensively for her recurrent UTI as an outpatient. It was found that she was not emptying her bladder completely. In the past she had been doing okay with chronic oral suppression using Bactrim, but since October she's had organisms that are resistant to Bactrim. Patient then was evaluated for implantation of a bladder stimulator so that she would empty her bladder better. Infectious disease consultation has been requested to evaluate the patient. Review of Systems Constitutional: COMPLAINS OF: Fever, Chills Eyes: DENIES: Eye pain Ears, nose, mouth, throat: DENIES: Nasal discharge, Oral lesions, Throat pain, Ear Pain, Sinus Pain, Toothache Respiratory: DENIES: Cough, Shortness of breath Cardiovascular: DENIES: Chest pain, Palpitations, Syncope Gastrointestinal: COMPLAINS OF: Abdominal pain, Vomiting, DENIES: Diarrhea, Difficulty Swallowing, Anorexia Genitourinary: DENIES: Urinary frequency, Dysuria Musculoskeletal: COMPLAINS OF: Back pain, DENIES: Joint pain, Stiffness, Joint Swelling, Neck pain Integumentary: DENIES: Pruritus, Rash Neurologic: DENIES: Headache, Localized weakness Psychiatric: DENIES: Hallucinations Past Family Social History Allergies: Coded Allergies: Celestina (Unverified Allergy, Severe, SEVERE HEADACHES, 03/23/17) Cipro (Unverified Allergy, Severe, RASH, VERTIGO, 03/23/17) Claritin (Unverified Allergy, Severe, SEVERE HEADACHES, 03/23/17) Fentanyl (Verified Allergy, Severe, 03/23/17) DENIES ALLERGY 11/28/11 Meperidine (Verified Allergy, Severe, 03/23/17) Lexapro (Verified Allergy, Intermediate, TREMORS, ARMS & LEGS, 03/23/17) Remeron Sarah-Tab (Verified Allergy, Intermediate, TREMORS ARMS & LEGS, 03/23) Ceftin (Verified Allergy, Mild, N/V, 03/23/17) Codeine (Verified Allergy, Mild, N/V, 03/23/17) Percocet (Verified Allergy, Mild, N/V, 03/23/17) Past Medical History Breast cancer GERD Constipation Frequent UTI Hiatal hernia Arthritis Transient vertigo Claustrophobia Obstructive sleep apnea Pneumonia Claustrophobia. Past Surgical History Right hemicolectomy for obstructing colon mass (reportedly benign) Appendectomy Bilateral cataract Tonsillectomy Right breast lumpectomy D&C in 1993 Active Ordered Medications Tylenol Aspirin Azactam Tums Heparin MOM Zofran Protonix Ativan Family History Non-contributory to current ID problem Social History A , lives alone Patient drinks alcohol rarely. Denies tobacco use Denies illicit substance use. Physical Exam Vital Signs Vital Signs Date Time Temp Pulse Resp B/P Pulse Ox O2 Delivery O2 Flow Rate FiO2 03/24/17 14:03 95 Nasal Cannula 1.00 03/24/17 12:00 97.9 72 20 106/67 95 03/24/17 09:19 98 Nasal Cannula 2.00 03/24/17 08:00 67 03/24/17 08:00 97.6 62 20 144/81 97 03/24/17 04:00 99.1 77 18 113/59 100 03/24/17 00:00 99.1 80 18 152/88 95 03/23/17 23:38 85 03/23/17 22:40 70 03/23/17 21:05 94 Nasal Cannula 2.00 03/23/17 20:00 99.7 110 18 160/83 91 03/23/17 16:06 98 Nasal Cannula 2.00 03/23/17 16:00 98.8 87 20 145/77 94 Physical Exam GENERAL: Patient is a well-nourished, well-developed CF, awake and alert, not in respiratory distress. SKIN: Warm and dry. No generalized rash, no ecchymoses and no evidence of embolic lesions. HEAD: Atraumatic. Normocephalic. No temporal wasting, or tenderness. EYES: [place] conjunctiva. No petechia or hemorrhage. Pupils equal, round and reactive to light. Extraocular movements full and intact. No scleral icterus. No injection or drainage. EARS, NOSE AND THROAT: Nose without bleeding or purulent nasal discharge. No sinus tenderness. Mucous membranes pink and moist. No oral lesions noted. No exudate. No oral thrush. NECK: Trachea midline. Supple and not tender, no meningeal signs CARDIOVASCULAR: Regular rate and rhythm. No murmurs, rubs or gallops heard RESPIRATORY: Clear to auscultation. Breath sounds equal bilaterally. No rales , wheezing or rhonchi ABDOMEN: Soft, nondistended. Has mild tenderness on the L side, no suprapubic fullness. Bowel sounds present and normoactive. No guarding. No rebound. No organomegaly. BACK: Healed incisions R buttock, and mid low back EXTREMITIES: No clubbing, cyanosis, or edema. No joint effusion, has good ROM. No calf tenderness. Well perfused and warm. NEUROLOGICAL: Awake and alert. Cranial nerves grossly intact. Motor grossly within normal limits. PSYCHIATRIC: Normal affect, calm and cooperative. LINE: No evidence of infection Laboratory Laboratory Tests Test 03/24/17 06:23 White Blood Count 5.0 Red Blood Count 4.22 Hemoglobin 12.1 Hematocrit 37.3 Mean Corpuscular Volume 88.3 Mean Corpuscular Hemoglobin 28.8 Mean Corpuscular Hemoglobin 32.6 Concent Red Cell Distribution Width 13.4 Platelet Count 152 Mean Platelet Volume 7.5 Neutrophils (%) (Auto) 61.2 Lymphocytes (%) (Auto) 26.6 Monocytes (%) (Auto) 10.1 Eosinophils (%) (Auto) 1.3 Basophils (%) (Auto) 0.8 Neutrophils # (Auto) 3.1 Lymphocytes # (Auto) 1.3 Monocytes # (Auto) 0.5 Eosinophils # (Auto) 0.1 Basophils # (Auto) 0.0 CBC Comment DIFF FINAL Differential Comment Sodium Level 141 Potassium Level 4.1 Chloride Level 108 Carbon Dioxide Level 26.8 Anion Gap 6 Blood Urea Nitrogen 10 Creatinine 0.68 Estimat Glomerular Filtration 82 Rate Random Glucose 95 Calcium Level 8.3 Date/Time Procedure Status Source Growth 03/23/17 12:30 Aerobic Blood Culture - Preliminary Resulted Blood Peripheral NO GROWTH IN 1 DAY 03/23/17 12:30 Anaerobic Blood Culture - Preliminary Resulted Blood Peripheral NO GROWTH IN 1 DAY 03/23/17 09:15 Urine Culture - Preliminary Resulted Urine Clean Catch NO GROWTH IN 24 HOURS. Result Diagram: 03/24/17 0623 03/24/17 0623 Imaging RADIOLOGY STUDIES/FILMS REVIEWED Abdomen/Pelvis CT 03/23/17 0847 Signed Impressions: Service Date/Time: March 10:27 - CONCLUSION: 1. Very mild prominence of the renal collecting systems bilaterally without evidence for hydroureter. This may reflect residual pelviectasis if patient has a history of prior hydronephrosis. Otherwise, this is of uncertain clinically significance. Clinical correlation is recommended. 2. Otherwise, no definitive findings to explain patient's symptoms. 3. Ancillary findings include cholelithiasis, mild sigmoid diverticulosis and degenerative spondylosis of the lumbar spine. Mau Boo MD Chest X-Ray 03/23/17 0000 Signed Impressions: Service Date/Time: March 09:26 - CONCLUSION: 1. Minimal basal atelectasis. No consolidation or effusion. Surgical clips right axillary region. Krzysztof Amador MD CT Angiography 03/23/17 0000 Signed Impressions: Service Date/Time: March 10:27 - CONCLUSION: 1. Negative for pulmonary embolus. 2. Mild bronchiectasis with peribronchial thickening. Minimal distal airway disease. No effusions or adenopathy. 3. Moderate to severe coronary calcifications. Krzysztof Amador MD Assessment and Plan Assessment and Plan IMPRESSION Sepsis due to source likely - temps better and WBC better - CT with mild rachel hydro Allergy to Cipro Adverse reaction to ceftin RECOMMENDATION Use IV Rocephin Bladder scan, and check PVR Repeat UA Follow C/S, adjust Abx - C/S result likely be affected by the Macrobid that she is taking prior to admission Monitor temps Monitor progress If C/S (+), will ajust Abx based on results If she continues to improve and C/S are negative, will use Augmentin to Rx her urosepsis I will determine choice and couirse of Abx once work-up completed and depending on her clinical response I will follow along with you Thank you for this consultation Suzie Abdullahi MD Mar 24, 2017 15:17
[2017-03-24] MEDS ORDERED: cefTRIAXone INJ 2,000 MG in SODIUM CHLORIDE 0.9% INJ 100 ML IV SCH (16:00)
[2017-03-24 16:31] LABS: HEMOGLOBIN A1a 1.5 %; HEMOGLOBIN A1b 2.1 %; HEMOGLOBIN Ao 84.3 %; HEMOGLOBIN LA1C 1.8 %; HEMOGLOBIN P3 3.8 %
[2017-03-24] MEDS ORDERED: IBUPROFEN 400 MG TAB PO ONE (20:45)
[2017-03-24] MEDS: TEMAZEPAM 15 MG CAP PO PRN (21:02)
[2017-03-25 00:58] VITALS: BP 140/76; PULSE 68; RESP 14; TEMP 97.9; O2SAT 93
[2017-03-25] MEDS: HEPARIN SODIUM - SQ 10,000 UNITS/ML VIAL SQ SCH (03:00)
[2017-03-25 05:03] VITALS: BP 146/66; PULSE 60; RESP 12; TEMP 98; O2SAT 95
[2017-03-25 08:00] VITALS: BP 140/73; PULSE 50; RESP 18; TEMP 96.8; O2SAT 91
[2017-03-25 09:22] VITALS: O2SAT 94
[2017-03-25 12:00] VITALS: BP 136/74; PULSE 67; RESP 20; TEMP 97.6; O2SAT 94
[2017-03-25 12:30] LABS: BLOOD, URINE TRACE (NEG); GLUCOSE,URINE NEG (NEG); KETONE, URINE NEG (NEG); NITRITE,URINE NEG (NEG)
[2017-03-25 12:37] LABS: COMMENT (UR) CULT NOT INDICATED; CULTURE IF INDICATED CULT NOT INDICATED; METHOD OF COLLECTION CLEAN CATCH; SQUAMOUS EPITHELIAL CELL URINE 0-5 /hpf (0-5); URINE COLOR STRAW (YELLW/STRAW)
--- NOTE | 2017-03-25 12:46 | HHI.PR ---
Subjective Remarks Patient states she does not feel great today she states she was feeling better yesterday denies cp/sob denies fevers or chills states has no energy afebrile vital signs stable Objective Vitals Vital Signs Date Time Temp Pulse Resp B/P Pulse Ox O2 Delivery O2 Flow Rate FiO2 03/25/17 09:22 94 21 03/25/17 08:00 96.8 50 18 140/73 91 03/25/17 05:03 98.0 60 12 146/66 95 03/25/17 00:58 97.9 68 14 140/76 93 03/24/17 21:02 96.5 82 14 131/69 93 03/24/17 20:30 94 21 03/24/17 20:00 84 03/24/17 16:00 97.6 68 20 154/83 96 03/24/17 14:03 95 Nasal Cannula 1.00 I/O 03/24/17 03/24/17 03/24/17 03/25/17 03/25/17 03/25/17 07:00 15:00 23:00 07:00 15:00 23:00 Intake Total 1031 ml 560 ml Balance 1031 ml 560 ml Intake Oral 560 ml IV Total 1031 ml Bladder Scan Volume Amount 8 ml # Voids 4 1 3 # Bowel Movements 0 Result Diagram: 03/24/17 0623 03/24/17 0623 Imaging Last Impressions Abdomen/Pelvis CT 03/23/17 0847 Signed Impressions: Service Date/Time: March 10:27 - CONCLUSION: 1. Very mild prominence of the renal collecting systems bilaterally without evidence for hydroureter. This may reflect residual pelviectasis if patient has a history of prior hydronephrosis. Otherwise, this is of uncertain clinically significance. Clinical correlation is recommended. 2. Otherwise, no definitive findings to explain patient's symptoms. 3. Ancillary findings include cholelithiasis, mild sigmoid diverticulosis and degenerative spondylosis of the lumbar spine. Mau Boo MD Chest X-Ray 03/23/17 0000 Signed Impressions: Service Date/Time: March 09:26 - CONCLUSION: 1. Minimal basal atelectasis. No consolidation or effusion. Surgical clips right axillary region. Krzysztof Amador MD CT Angiography 03/23/17 0000 Signed Impressions: Service Date/Time: March 10:27 - CONCLUSION: 1. Negative for pulmonary embolus. 2. Mild bronchiectasis with peribronchial thickening. Minimal distal airway disease. No effusions or adenopathy. 3. Moderate to severe coronary calcifications. Krzysztof Amador MD Objective Remarks GENERAL: This is a well-nourished, well-developed patient, in no apparent distress. SKIN: No rashes, ecchymoses or lesions. Cool and dry. HEAD: Atraumatic. Normocephalic. No temporal or scalp tenderness. EYES: Pupils equal round and reactive. Extraocular motions intact. No scleral icterus. No injection or drainage. ENT: Nose without bleeding, purulent drainage or septal hematoma. Throat without erythema, tonsillar hypertrophy or exudate. Uvula midline. Airway patent. NECK: Trachea midline. No JVD or lymphadenopathy. Supple, nontender, no meningeal signs. CARDIOVASCULAR: Regular rate and rhythm without murmurs, gallops, or rubs. RESPIRATORY: Clear to auscultation. Breath sounds equal bilaterally. No wheezes , rales, or rhonchi. GASTROINTESTINAL: Abdomen soft, non-tender, nondistended. No hepato-splenomegaly , or palpable masses. No guarding. There is the presence of a bladder stimulator on the right lower back. MUSCULOSKELETAL: Extremities without clubbing, cyanosis, or edema. No joint tenderness, effusion, or edema noted. No calf tenderness. Negative Homans sign bilaterally. NEUROLOGICAL: Awake and alert. Cranial nerves II through XII intact. Motor and sensory grossly within normal limits. Five out of 5 muscle strength in all muscle groups. Normal speech. Procedures none Medications and IVs Current Medications Medications (Trade) Dose Ordered Sig/Shakira Route Start Time Stop Time Status Last Admin (NS Flush) 2 ml UNSCH PRN IV FLUSH 03/23/17 11:45 (NS Flush) 2 ml BID IV FLUSH 03/23/17 21:00 03/24/17 21:00 (Protonix) 40 mg DAILY PO 03/24/17 09:00 03/24/17 08:34 (Tylenol) 650 mg Q4H PRN PO 03/23/17 11:45 (Zofran Inj) 4 mg Q6H PRN IV 03/23/17 11:45 (Milk Of Magnesia Liq) 30 ml DAILY PRN PO 03/23/17 11:45 03/24/17 21:02 (Tums Chew) 1,000 mg TID PRN CHEW 03/23/17 11:45 (Restoril) 15 mg HS PRN PO 03/23/17 11:45 03/24/17 21:02 (Ecotrin Ec) 81 mg DAILY PRN PO 03/23/17 11:45 Heparin Sodium (Porcine) 5000 units 5,000 units Q12H SQ 03/23/17 15:00 03/25/17 03:00 (Rocephin Inj/NS Inj) 100 ml @ 200 mls/hr Q24H IV 03/24/17 16:00 03/24/17 16:47 Urinary Catheter: No Vascular Central Line Catheter: No A/P Problem List: (1) Severe sepsis ICD Code: A41.9 Status: Acute Plan: Present on admission. Patient with leukocytosis, 14% bands, tachycardia. Admitted the patient to medical floor Treated with IV fluids and IV history in am Blood cultures obtained, negative to date 03/[address] Abdullahi recommended repeating the urinalysis, switch and they have antibiotics to IV Rocephin. She also recommended that if urinalysis is negative or urine culture is negative as well 10 the patient could go home on by mouth Augmentin for 14 days. (2) UTI (urinary tract infection) ICD Code: N39.0 Status: Acute Plan: Patient has history of frequent UTIs. Follows up as outpatient with a urologist - Dr Kumar Continue IV antibiotics as above. repeat UA as per ID. If negative will Dc home on augmentin (3) Leukocytosis ICD Code: D72.829 Status: Acute Plan: Previously 12.1 on admission. Now resolved. Continue to monitor CBC. (4) Bandemia ICD Code: D72.825 Status: Resolved Plan: Bandemia has resolved with current treatment. (5) Elevated lactic acid level ICD Code: R79.89 Status: Acute Plan: Due to sepsis, secondary to UTI. Resolved after IV fluid administration (6) Hyperglycemia ICD Code: R73.9 Status: Acute Plan: Patient states is prediabetic. Hemoglobin A1c pending. Blood sugar stable. Continue to monitor Accu-Cheks and cover elevated blood sugars with SSI with insulin NovoLog as needed. 6/24 hemoglobin A1c 6.2. The patient is prediabetic. I will discuss with the patient the possibility of starting metformin upon discharge. Assessment and Plan GI prophylaxis: PPI. DVT prophylaxis. Heparin simultaneously, SCDs. Discharge Planning Discharge pending urinalysis result. Possible discharge later today with health PT. Problem Qualifiers (1) UTI (urinary tract infection): Qualified Code: N30.00 - Acute cystitis without hematuria (2) Leukocytosis: Qualified Code: D72.825 - Bandemia Francisco Isabel MD Mar 25, 2017 12:46
[2017-03-25] MEDS ORDERED: REST15CA PO (15:06)
--- NOTE | 2017-03-25 15:07 | HHI.DCPOC ---
Discharge Care Plan Diagnosis: (1) Bandemia (2) Hyperglycemia (3) Severe sepsis (4) UTI (urinary tract infection) (5) Leukocytosis Goals to Promote Your Health * To prevent worsening of your condition and complications * To maintain your health at the optimal level Directions to Meet Your Goals Take your medications as prescribed Follow your dietary instruction Follow activity as directed Keep your appointments as scheduled Take your immunizations and boosters as scheduled If your symptoms worsen call your PCP, if no PCP go to Urgent Care Center or Emergency Room Smoking is Dangerous to Your Health. Avoid second hand smoke Call the 24-hour hour crisis hotline for domestic abuse at Francisco Isabel MD Mar 25, 2017 15:07
[2017-03-25] MEDS ORDERED: AUGM500T7 PO (15:08)
[2017-03-25] MEDS ORDERED: ALPR.25 PO ×2 (15:09→15:11)
--- NOTE | 2017-03-25 15:13 | HHI.FF ---
Face to Face Verification Diagnosis: (1) Severe sepsis (2) UTI (urinary tract infection) (3) Weakness Physical Therapy Order: Improve ambulation, Strength and gait training Home Health Nursing Order: Medication education-adverse effect Nursing assessment with vital signs I have seen patient Lina Song on 03/25/17. My clinical findings support the need for the requested home health care services because: Deconditioned w/ increased weakness High risk of falls Infection w/ risk of complications I certify that my clinical findings support that this patient is homebound because: Unsteady gait/balance Unsafe to leave home unassisted Unable to use public transportation Francisco Isabel MD Mar 25, 2017 15:13
[2017-03-25] MEDS ORDERED: IBUPROFEN 200 MG TAB PO ONE (15:30)
--- NOTE | 2017-03-25 15:34 | HHI.DS ---
Discharge Summary Admission Date Mar 23, 2017 at 11:28 Discharge Date: Mar 25, 2017 Admitting Diagnosis Urosepsis (1) Severe sepsis ICD Code: A41.9 Diagnosis: Principal (2) UTI (urinary tract infection) ICD Code: N39.0 Diagnosis: Principal (3) Leukocytosis ICD Code: D72.829 Diagnosis: Principal (4) Bandemia ICD Code: D72.825 Diagnosis: Principal (5) Elevated lactic acid level ICD Code: R79.89 Diagnosis: Principal (6) Hyperglycemia ICD Code: R73.9 Diagnosis: Principal (7) Weakness ICD Code: R53.1 Procedures none Brief History - From Admission This is an 87-year-old female with past medical history significant for frequent urinary tract infections, urinary incontinence status post bladder stimulator implantation who presents to [facility] complaining of new onset of chills and feeling very cold and weakness which started 2-3 days ago. The patient states he went to see her primary doctor, Dr. Angeles who prescribed Macrobid after diagnosing the urinary tract infection. Patient also complains of nausea, states she vomited once in emergency department. Patient states that she did not have dysuria which is the usual way her urinary tract infections present. Denies cough, denies diarrhea. CBC/BMP: 03/24/17 0623 03/24/17 0623 Significant Findings Laboratory Tests Test 03/23/17 03/23/17 03/24/17 03/25/17 08:55 09:15 06:23 11:25 White Blood Count 12.1 TH/MM3 (4.0-11.0) Neutrophils % (Manual) 81 % (16-70) Band Neutrophils % 14 % (0-6) Lymphocytes % 3 % (9-44) Neutrophils # (Manual) 11.5 TH/MM3 (1.8-7.7) Prothrombin Time 9.7 SEC (9.8-11.6) Activated Partial 22.9 SEC Thromboplast Time (24.3-30.1) Estimat Glomerular Filtration 79 ML/MIN (>89) 82 ML/MIN (>89) Rate Random Glucose 127 MG/DL (74-106) Lactic Acid Level 2.7 mmol/L (0.4-2.0) Aspartate Amino Transf 41 U/L (15-37) (AST/SGOT) Troponin I LESS THAN 0.02 NG/ML (0.02-0.05) Urine Occult Blood TRACE (NEG) TRACE (NEG) Urine Leukocyte Esterase TRACE (NEG) Urine WBC 9-14 /hpf (0-5) Urine WBC Clumps RARE (NONE) Urine Bacteria OCC /hpf (NONE) Monocytes (%) (Auto) 10.1 % (0.0-8.0) Chloride Level 108 MEQ/L (98-107) Hemoglobin A1c 6.2 % (4.3-6.0) Calcium Level 8.3 MG/DL (8.5-10.1) Imaging Last Impressions Abdomen/Pelvis CT 03/23/17 0847 Signed Impressions: Service Date/Time: March 10:27 - CONCLUSION: 1. Very mild prominence of the renal collecting systems bilaterally without evidence for hydroureter. This may reflect residual pelviectasis if patient has a history of prior hydronephrosis. Otherwise, this is of uncertain clinically significance. Clinical correlation is recommended. 2. Otherwise, no definitive findings to explain patient's symptoms. 3. Ancillary findings include cholelithiasis, mild sigmoid diverticulosis and degenerative spondylosis of the lumbar spine. Mau Boo MD Chest X-Ray 03/23/17 0000 Signed Impressions: Service Date/Time: March 09:26 - CONCLUSION: 1. Minimal basal atelectasis. No consolidation or effusion. Surgical clips right axillary region. Krzysztof Amador MD CT Angiography 03/23/17 0000 Signed Impressions: Service Date/Time: March 10:27 - CONCLUSION: 1. Negative for pulmonary embolus. 2. Mild bronchiectasis with peribronchial thickening. Minimal distal airway disease. No effusions or adenopathy. 3. Moderate to severe coronary calcifications. Krzysztof Amador MD PE at Discharge GENERAL: This is a well-nourished, well-developed patient, in no apparent distress. SKIN: No rashes, ecchymoses or lesions. Cool and dry. HEAD: Atraumatic. Normocephalic. No temporal or scalp tenderness. EYES: Pupils equal round and reactive. Extraocular motions intact. No scleral icterus. No injection or drainage. ENT: Nose without bleeding, purulent drainage or septal hematoma. Throat without erythema, tonsillar hypertrophy or exudate. Uvula midline. Airway patent. NECK: Trachea midline. No JVD or lymphadenopathy. Supple, nontender, no meningeal signs. CARDIOVASCULAR: Regular rate and rhythm without murmurs, gallops, or rubs. RESPIRATORY: Clear to auscultation. Breath sounds equal bilaterally. No wheezes , rales, or rhonchi. GASTROINTESTINAL: Abdomen soft, non-tender, nondistended. No hepato-splenomegaly , or palpable masses. No guarding. There is the presence of a bladder stimulator on the right lower back. MUSCULOSKELETAL: Extremities without clubbing, cyanosis, or edema. No joint tenderness, effusion, or edema noted. No calf tenderness. Negative Homans sign bilaterally. NEUROLOGICAL: Awake and alert. Cranial nerves II through XII intact. Motor and sensory grossly within normal limits. Five out of 5 muscle strength in all muscle groups. Normal speech. Pt update on day of discharge Patient states that medication provided here for insomnia works really well. Patient states that her primary care physician gave her Ativan orally for insomnia next ID, however the patient only took 2 tablets because she will feel groggy and sleepy and would be afraid to drive. Patient states however she still feels anxious. Denies chest pain, short of breath, denies dizziness, denies fevers or chills. Denies nausea, vomiting or abdominal pain. Hospital Course (1) Severe sepsis Present on admission. Patient with leukocytosis, 14% bands, tachycardia. Admitted the patient to medical floor Treated with IV fluids and IV history in am Blood cultures obtained, negative to date ID Consulted. Dr. Abdullahi recommended repeating the urinalysis, switch and they have antibiotics to IV Rocephin. She also recommended that if urinalysis is negative or urine culture is negative as well 10 the patient could go home on by mouth Augmentin for 14 days. Repeat urinalysis negative, discussed case with Dr Abdullahi, will DC home with home health PT on Augmentin 500 mg TID x 14 days. (2) UTI (urinary tract infection) Patient has history of frequent UTIs. Follows up as outpatient with a urologist - Dr Kumar Continue IV antibiotics as above. repeat UA as per ID. If negative will Dc home on augmentin (3) Leukocytosis Due to sepsis and uti. Previously 12.1 on admission. WBC monitored through hospital stay. Resolved. (4) Bandemia Bandemia has resolved with current treatment. (5) Elevated lactic acid level Plan: Due to sepsis, secondary to UTI. Resolved after IV fluid administration (6) Hyperglycemia HBa1c 6.2, hyperglycemia due to prediabetes. Blood sugar stable. Continue to monitor Accu-Cheks and cover elevated blood sugars with SSI with insulin NovoLog as needed. 03/25 hemoglobin A1c 6.2. The patient is prediabetic. Discussed with patient, she will discuss with pmd. (7) Anxiety Will DC patient on xanax. Patient states she has been prescribed ativan but it would make her groggy. (8) Headache Treated with Advil, no nuchal rigidity, photophobia, denied nausea or vomiting. (9) Weakness PT consulted. Will DC home with home health. GI prophylaxis: PPI. DVT prophylaxis. Heparin simultaneously, SCDs. Pt Condition on Discharge: Stable Discharge Disposition: Disch w/ Home Health Serv Discharge Time: > 30 minutes Discharge Instructions DIET: Follow Instructions for: Heart Healthy Diet, Diabetic Diet Activities you can perform: See Additionl Instruction Other Activity Instructions: out of bed with assistance Use walker for ambulation Follow up Referrals: PCP Follow-up - 1 Week New Medications: Alprazolam (Xanax) 0.25 Mg Tab 0.25 MG PO Q8H Do not drive or operative heavy machinery until you know how you react to these medication PRN ANXIETY #30 Ref 0 TAB Amoxicillin-Clavulanate (Augmentin) 500-125 mg Tab 500 MG PO Q8H Infection #42 Ref 0 TAB Temazepam (Restoril) 15 Mg Cap 15 MG PO HS PRN INSOMNIA #30 CAP Continued Medications: Aspirin DR (S[place]cer Aspirin EC Low Dose) 81 Mg Tabdr 81 MG PO DAILY PRN HEART [facility] Lactobacillus Acidophilus (Probiotic) 1 Cap Cap 1 CAP PO DAILY Nutritional Supplement #90 Ref 0 CAP Omeprazole (Omeprazole) 20 Mg Tab 20 MG PO DAILY #30 Ref 0 TAB Discontinued Medications: Nitrofurantoin Monohydrate Macrocrystals (Macrobid) 100 Mg Cap 100 MG PO BID Infection Ref 0 CAP Francisco Isabel MD Mar 25, 2017 15:34
[2017-03-25] MEDS: PANTOPRAZOLE SOD 40 MG DELAYED RELEASE TAB PO SCH (15:43)
[2017-03-25 16:00] VITALS: PULSE 77
== END 2017-03-25 16:56 | disposition home health service (06) | DRG 872 ==
LOC: PHED 08:37 → PHEDA 11:28 → PH3A 12:36
PROVIDERS: ADMIT Hospitalist; ATTEND Hospitalist
DX: A41.9 Sepsis, unspecified organism (principal); N39.0 Urinary tract infection, site not specified; J98.11 Atelectasis; R65.20 Severe sepsis without septic shock; R73.9 Hyperglycemia, unspecified; R73.03 Prediabetes; J47.9 Bronchiectasis, uncomplicated; G47.33 Obstructive sleep apnea (adult) (pediatric); M19.90 Unspecified osteoarthritis, unspecified site; K21.9 Gastro-esophageal reflux disease without esophagitis; F40.240 Claustrophobia; Z82.49 Family history of ischemic heart disease and other diseases of the circulatory system; Z85.3 Personal history of malignant neoplasm of breast; Z87.440 Personal history of urinary (tract) infections; Z88.1 Allergy status to other antibiotic agents; Z88.5 Allergy status to narcotic agent
CPT/HCPCS: 71010; 71275; 74177; 80048; 80053; 81001; 82550; 82552; 83036; 83605; 83690; 84484; 85007; 85025; 85027; 85610; 85730; 87040; 87086; 93005; 94150; 96361; 96365; 96375; J0696; J1644; J2405; J7030; J7040; Q9967

== ENCOUNTER → 2017-07-27 | Outpatient (CLI) | payer MEDICARE ==
[~2017-07-27] MED LIST changes: +ALPR.25 PO; +AUGM500T7 PO; -CENTTAB PO; +REST15CA PO; -THERTAB27 PO
[2017-07-27 11:04] LABS: HEMATOCRIT 40.4 % (35.0-46.0); MEAN CELL VOLUME 89.6 FL (80.0-100.0); MEAN CORPUSCULAR HEMOGLOBIN 30.5 PG (27.0-34.0); PLATELET COUNT 187 TH/MM3 (150-450); RED BLOOD COUNT 4.51 MIL/MM3 (4.00-5.30); REVIEW FLAG FINAL; WHITE BLOOD COUNT 4.7 TH/MM3 (4.0-11.0)
[2017-07-27 11:13] LABS: ANION GAP 6 MEQ/L (5-15); AST (GOT) 26 U/L (15-37); BLOOD UREA NITROGEN 18 MG/DL (7-18); CHLORIDE 104 MEQ/L (98-107); GLOMERULAR FILTRATION RATE 57 ML/MIN (>89); GLUCOSE,FASTING 111 MG/DL (74-99); POTASSIUM 4.8 MEQ/L (3.5-5.1); SODIUM (NA) 138 MEQ/L (136-145)
[2017-07-27 11:19] LABS: ALKALINE PHOSPHATASE 89 U/L (45-117); ALT (GPT) 23 U/L (10-53); HDL CHOLESTEROL 82.1 MG/DL (40.0-60.0); LDL CHOLESTEROL 137 MG/DL (0-99); LDL CHOLESTEROL DIRECT 154 MG/DL (0-99); TOTAL BILIRUBIN ADULT 0.4 MG/DL (0.2-1.0)
== END ==
LOC: PLAB 07:03
PROVIDERS: ATTEND Internal Medicine
DX: I10 Essential (primary) hypertension (principal); E78.5 Hyperlipidemia, unspecified
CPT/HCPCS: 36415; 80053; 80061; 83721; 85027

== ENCOUNTER → 2017-12-08 | Outpatient (CLI) | payer MEDICARE ==
[~2017-12-08] MED LIST changes: +CENTCHW4 CHEW; +IBUP200T47 PO; -OMEP20TA PO; +OMEP20TA93 PO; +THER50TA3 PO
[2017-12-08 09:13] LABS: HEMATOCRIT 37.7 % (35.0-46.0); HEMOGLOBIN 12.9 GM/DL (11.6-15.3); MEAN CORPUSCULAR HEMOGLOBIN 29.8 PG (27.0-34.0); MEAN CORPUSCULAR HGB CONC 34.3 % (32.0-36.0); MEAN PLATELET VOLUME 7.4 FL (7.0-11.0); PLATELET COUNT 188 TH/MM3 (150-450); RED BLOOD COUNT 4.34 MIL/MM3 (4.00-5.30); RED CELL DISTRIBUTION WIDTH 13.8 % (11.6-17.2); WHITE BLOOD COUNT 5.5 TH/MM3 (4.0-11.0)
[2017-12-08 09:20] LABS: PROTHROMBIN TIME - PATIENT 10.3 SEC (9.8-11.6)
[2017-12-08 09:43] LABS: BICARBONATE 28.4 MEQ/L (21.0-32.0); CALCIUM 9.5 MG/DL (8.5-10.1); CREATININE 0.74 MG/DL (0.50-1.00)
[2017-12-08 13:09] LABS: BILIRUBIN, URINE NEG (NEG); BLOOD, URINE NEG (NEG); GLUCOSE,URINE NEG (NEG); KETONE, URINE NEG (NEG); NITRITE,URINE NEG (NEG); PH, URINE 5.5 (5.0-8.5); URINE COLOR YELLOW (YELLW/STRAW); URINE LEUKOCYTE ESTERASE NEG (NEG)
--- NOTE | 2017-12-09 23:13 | EKG ---
Date Performed: 12/08/2017 Time Performed: 08:14:55 PTAGE: 87 years EKG: Sinus rhythm POSSIBLE LEFT ATRIAL ENLARGEMENT BORDERLINE ECG PREVIOUS TRACING : 03/23/2017 09.00 Compared to prior tracing, rate has decreased DOCTOR: Nicholas Vernon Interpretating Date/Time 12/09/2017 23:11:59
== END ==
LOC: CPRE 07:49
PROVIDERS: ATTEND Orthopaedic Surgery
DX: Z01.810 Encounter for preprocedural cardiovascular examination (principal); Z01.812 Encounter for preprocedural laboratory examination; Z01.818 Encounter for other preprocedural examination; M19.011 Primary osteoarthritis, right shoulder; M79.609 Pain in unspecified limb; R94.31 Abnormal electrocardiogram [ECG] [EKG]
CPT/HCPCS: 36415; 80048; 81001; 85027; 85610; 85730; 93005

== ENCOUNTER 2017-12-26 07:13 | Inpatient (IN) | payer MEDICARE ==
[~2017-12-26] VITALS: Ht 162.6 cm; Wt 66.0 kg
[~2017-12-26 07:13] MED LIST changes: -ALPR.25 PO; -AUGM500T7 PO; -LACTCAP8 PO; -OMEP20TA93 PO
[2017-12-26] MEDS ORDERED: SODIUM CHLORIDE 0.9% IV SCH ×4 (07:45)
[2017-12-26] MEDS ORDERED: CHLORHEXIDINE GLUCONATE 4% SOLN 120 ML BTL TOPICAL SCH (07:45)
[2017-12-26] MEDS ORDERED: EXPAREL PERI-ARTICULAR INJECTION (TOTAL VOL. 60 ML) P-ARTICULR SCH ×2 (07:45)
[2017-12-26] MEDS ORDERED: TRANEXAMIC ACID IV SCH ×4 (07:45)
[2017-12-26] MEDS ORDERED: METOPROLOL TARTRATE 25 MG TAB PO PRN (08:00)
[2017-12-26] MEDS ORDERED: SODIUM CHLORID 0.9% 500 ML IV PRN (08:00)
[2017-12-26] MEDS ORDERED: CHLORHEXIDINE GLUCONATE 2 % 1 PACK (2 CLOTHS) TOPICAL PRN (08:00)
[2017-12-26] MEDS ORDERED: LACTATED RINGER'S 1000 ML IV PRN (08:00)
[2017-12-26] MEDS ORDERED: INSULIN HUMAN REGULAR 1,000 UNITS/10 ML VIAL SQ PRN (08:00)
[2017-12-26] MEDS ORDERED: POVIDONE IODINE 5% (ANTISEPSIS KIT) 4 APPLICATIONS EACH NARE PRN (08:00)
[2017-12-26] MEDS ORDERED: MIDAZOLAM HCL 2 MG/2 ML VIAL ONE (08:57)
[2017-12-26] MEDS ORDERED: MIDAZOLAM HCL 2 MG/2 ML VIAL IV PUSH ONE (09:15)
[2017-12-26] MEDS ORDERED: ONDANSETRON HCL 4 MG/2 ML VIAL IVP PRN (09:45)
[2017-12-26] MEDS ORDERED: MAGNESIUM HYDROXIDE SUSP 30 ML CUP PO PRN (09:45)
[2017-12-26] MEDS ORDERED: Post-op Orders (for Pharmacy) XX ONE (09:45)
[2017-12-26] MEDS ORDERED: TRANEXAMIC ACID INJ 0 MG in SODIUM CHLORIDE 0.9% INJ 100 ML IV SCH (09:45)
--- NOTE | 2017-12-26 09:52 | HHI.FF ---
Face to Face Verification Diagnosis: (1) Status post replacement of right shoulder joint Occupational Therapy Right UE Range of Motion: Pendular Additional Instructions Active and active assisted range of motion as tolerated. Do not externally rotate beyond neutral until 6 weeks postop. Do not forcefully internally rotate against resistance until 6 weeks postop. Nursing Nursing: Dressing changes Dressing Changes: Daily dressing change, Coverderm/Primapore Additional Instructions Do not remove Dermabond Prineo I have seen patient Lina Song on 12/26/17. My clinical findings support the need for the requested home health care services because: Ltd mobility - disease progression Limited ability to care for self High risk of falls I certify that my clinical findings support that this patient is homebound because: Post-op weakness Unsafe to leave home unassisted Julisa Sexton MD (Charles) Dec 26, 2017 09:52
[2017-12-26] MEDS ORDERED: GENTAMICIN SULFATE 80 MG/2 ML VIAL ONE (09:53)
[2017-12-26] MEDS ORDERED: ACETAMINOPHEN 1000 MG/100 ML 100 ML IV ONE (10:04)
[2017-12-26] MEDS ORDERED: FAMOTIDINE 20 MG/2 ML VIAL ONE (10:04)
[2017-12-26] MEDS ORDERED: ceFAZolin INJ 1,000 MG VIAL ONE ×2 (10:19→11:35)
[2017-12-26] MEDS ORDERED: ROCURONIUM INJ 50 MG/5 ML SYRINGE IV PUSH ONE (12:00)
[2017-12-26] MEDS ORDERED: LIDOCAINE HCL 1% PF 5 ML SYRINGE OTHER ONE (12:00)
[2017-12-26] MEDS ORDERED: ONDANSETRON HCL 4 MG/2 ML VIAL IV ONE (12:00)
[2017-12-26] MEDS ORDERED: GLYCOPYRROLATE 1 MG/5 ML SYRINGE IV PUSH ONE (12:00)
[2017-12-26] MEDS ORDERED: LACTATED RINGER'S 1000 ML INJ 1,000 ML IV ONE (12:00)
[2017-12-26] MEDS ORDERED: NEOSTIGMINE 5 MG/5 ML SYRINGE IV PUSH ONE (12:00)
[2017-12-26] MEDS ORDERED: ePHEDrine/NS 25 MG/5 ML SYRINGE IV ONE (12:00)
[2017-12-26] MEDS ORDERED: PHENYLEPH/NS 1000 MCG/10 ML SYR IV ONE (12:00)
[2017-12-26] MEDS ORDERED: PROPOFOL 200 MG/20 ML AMP IV ONE (12:00)
--- NOTE | 2017-12-26 13:10 | PD.OP ---
Operative Report Date of Surgery: Dec 26, 2017 Preoperative Diagnosis: (1) Primary osteoarthritis of right shoulder Postoperative Diagnosis: (1) Primary osteoarthritis of right shoulder Procedure: Right total shoulder arthroplasty using Enriqueta ReUnion prosthesis. Anesthesia: Interscalene block regional, general endotracheal and local with Exparel. Surgeon: Collins Sexton M.D. Inclusion Specialist(s): DARIEN Mendoza Operation and Findings: Indications and findings: This 87-year-old woman has had progressive and continues worsening of pain in her right shoulder which is nonresponsive to conservative measures. Exercises injections and anti-inflammatory agents have been unsuccessful in helping her pain. She is not coming for elective right total shoulder replacement. Physical findings showed limited range of motion in the shoulder with crepitation on range of motion. There is tenderness on motion as well. X-rays show severe arthritis, to [id number] in the glenohumeral joint. Intraoperative findings: There was severe osteoarthritis in the right shoulder with osteophytes on both sides the joint and loss of articular cartilage to expose subchondral bone. There are cysts in the glenoid. There are osteophytes. Implants: This was a [place] ReUnion prosthesis. The humeral stem was a size 14 mm cementless. The humeral head was a size 44 x 16 mm, standard. The glenoid was a size 44 mm. The cement was Simplex. The patient was brought to the clean-air operating suite and an interscalene block regional anesthetic was administered followed by a general endotracheal anesthetic. The patient was then placed into a beachchair position bolster under the shoulder. The shoulder was then prepped with alcohol, Hibiclens and ChloraPrep and draped in the usual manner with the shoulder draped free. An appropriate timeout procedure was carried out. An incision was made from the clavicle overlying the area of the coracoid process following the deltopectoral groove to the level of the anterior axillary fold. The incision was deepened through the subcutaneous tissues to the deltopectoral groove. The cephalic vein was protected and reflected laterally along with the deltoid. Anterior exposure was carried out. The distal vessels were identified and ligated. The axillary nerve was identified. The a Bankart self-retaining retractor was inserted under the edge of the conjoined tendon and deltoid. Dissection was then carried out to the rotator interval. This was then opened with the electrocautery and carried down to the upper portion of the subscapularis. A retractor was placed into the joint. The subscapularis was then detached from the lesser tuberosity. A suture was placed through this using #1 FiberWire. The subscapularis was then detached completely down to the lower and and a secondary suture placed with FiberWire at the distal end. The subscapularis was repaired retracted out of the way. The humeral head was inspected. Capsular dissection was carried down to the glenoid. Dissection was then carried out to the undersurface head to the level of the inferior capsule. This capsule capsular dissection was carried out to the 6 o'clock position and slightly beyond. The humeral head was carefully exposed and the shoulder dislocated. The resection guide was positioned at the anatomic neck and stabilized with pins according to the appropriate rotation. The humeral head was then removed with the oscillating saw. This was retained on the back table for sizing purposes. Further dissection was then carried out to the glenoid is moving the glenoid labrum and other soft tissues about the glenoid. Dissection was carried distally as well. This was carried to the 6 o' clock position as well. Humeral preparation was begun. Hand reaming was initiated starting with the initial entry reamer. This was increased by 1 mm increments up to the point where further reaming would not progress at 14 millimeters. Broaching was initiated starting with the broach 2 mm smaller than the reamed size and going in 1 mm increments up to 14 millimeters. The broach was left in place. Calcar planing was carried out by hand. Glenoid preparation was begun by identifying the center of the glenoid using the sizing prosthesis for a size 44 millimeter prosthesis. After this was marked, the initial drill hole was made initially with just a drill and then followed by the use of the centering guide. Reaming of the glenoid was then carried out with the appropriate size reamer. After this was completed the drill guide was positioned in place. The distal drill holes were then made. The secondary guide was then positioned in place and the secondary drill holes were made. The trial prosthesis/punch was impacted into place and then subsequently removed. The size appeared to be appropriate. The glenoid was then irrigated well with antibiotic solution. The drill holes were then dried. Simplex cement was then inserted into the drill holes followed by placement of the glenoid prosthesis. Excess cement was trimmed. Attention was then directed to the humerus. The trial prosthesis was placed onto the broach. The size for the head was determined to be 44 x 15 standard. The shoulder was then taken through a range of motion to evaluate stability and mobility. There was excellent stability and excellent mobility. The offset was appropriate. The trial prosthesis was removed followed by removal broach. The medullary canal was irrigated well. The humeral component was then impacted into place and seated appropriately. The humeral head prosthesis was then positioned in place appropriately and impacted in place after cleaning and drying the receptacle for the trunnion. The shoulder was again taken through a range of motion and checked for stability and mobility which were again comparable to that with the trial. Local anesthesia was administered throughout the shoulder with bupivacaine liposomal. Wound closure then commenced using #1 FiberWire Caden-Aime sutures to reattach the subscapularis. The rotator interval was closed with #1 FiberWire [id number] sutures. Motion was again checked and found to be excellent. The deltopectoral interval was approximated with 0 Vicryl interrupted [id number] sutures. Subcutaneous tissues were closed with 2-0 Vicryl interrupted simple sutures with buried knots. Skin was closed with continuous subcuticular closure of 4-0 Monocryl. The wound was dressed with Dermabond Prineo followed by dry dressing. The shoulder was placed into a cradle sling. The patient was transferred from the operating room to the recovery room in satisfactory condition having tolerated the procedure well. Counts are correct. Specimens: None. Estimated blood loss: 250 ml. Julisa Sexton MD (Charles) Dec 26, 2017 13:10
[2017-12-26] MEDS ORDERED: DO NOT ADM ANY ANTICOAGULANT DRUGS PRN (13:32)
[2017-12-26] MEDS: LACTATED RINGER'S 1000 ML INJ 1,000 ML IV SCH ×2 (14:00→20:21)
[2017-12-26] MEDS ORDERED: HYDROmorphone HCL PF 2 MG/ML VIAL IV PUSH PRN (15:00)
[2017-12-26] MEDS ORDERED: traMADol HCL 50 MG TAB PO PRN (15:00)
--- NOTE | 2017-12-26 15:12 | RADRPT ---
EXAM DATE/TIME: 12/26/2017 14:02 [place] COMPARISON: No previous studies available for comparison. INDICATIONS : Post surgery. MEDICAL HISTORY : Carcinoma, breast. Gastroesophageal reflux disease. Hernia, hiatal.Renal stone. SURGICAL HISTORY : Appendectomy. Mastectomy, right. ENCOUNTER: Initial ACUITY: 1 day PAIN SCORE: Non-responsive. LOCATION: Right Shoulder. FINDINGS: Two view examination of the right shoulder demonstrates postoperative right shoulder joint replacemen t. Normal alignment. No complications identified. CONCLUSION: 1. Postoperative right shoulder joint replacement. Krzysztof Amador MD on December 26, 2017 at 15:09 Board Certified Radiologist. This report was verified electronically.
[2017-12-26 16:17] VITALS: BP_SYST 143; BP_SYST 185; BP_DIAS 64; BP_DIAS 74; PULSE 71; RESP 16; TEMP 97.3; O2SAT 96
[2017-12-26] MEDS: traMADol HCL 50 MG TAB PO PRN (16:46)
--- NOTE | 2017-12-26 18:59 | PD.CONS ---
HPI Service [facility] Hospitalists Consult Requested By Dr Sexton Reason for Consult Medical management Primary Care Physician Ethan Friedman MD Diagnoses: (1) Status post replacement of right shoulder joint History of Present Illness This is a an 87-year-old female with extensive past medical history as detailed below presents to [facility] for elective right shoulder arthroplasty. The patient is status post right shoulder arthroplasty performed by Dr. Sexton and is requesting my assistance for medical management. Denies cp/sob, fevers, pain controlled. Review of Systems As per HPI, other systems reviewed by me and negative. Past Family Social History Allergies: Coded Allergies: ciprofloxacin (Unverified Allergy, Severe, RASH, VERTIGO, 12/26/17) fentanyl (Unverified Allergy, Severe, 12/26/17) DENIES ALLERGY 11/28/11 fexofenadine (Unverified Allergy, Severe, SEVERE HEADACHES, 12/26/17) hydrocodone (Verified Allergy, Severe, itching, 12/26/17) loratadine (Unverified Allergy, Severe, SEVERE HEADACHES, 12/26/17) meperidine (Unverified Allergy, Severe, Hallucinations, 12/26/17) escitalopram (Unverified Allergy, Intermediate, TREMORS, ARMS & LEGS, 12/26) mirtazapine (Unverified Allergy, Intermediate, TREMORS ARMS & LEGS, ) chlorhexidine (Verified Allergy, Unknown, Itching, 12/26/17) diclofenac (Verified Adverse Reaction, Severe, gi distress, 12/26/17) cefuroxime (Unverified Adverse Reaction, Mild, N/V, 12/26/17) codeine (Unverified Adverse Reaction, Mild, N/V, 12/26/17) oxycodone (Unverified Adverse Reaction, Mild, N/V, 12/26/17) Past Medical History 1. Breast cancer 2. GERD 3. Constipation 4. Frequent UTI 5. Hiatal hernia 6. Arthritis 7. Transient vertigo 8. Claustrophobia 9. Obstructive sleep apnea 10. Pneumonia 11. Claustrophobia. Past Surgical History 1. Right hemicolectomy for obstructing colon mass (reportedly benign) 2. Appendectomy 3. Bilateral cataract 4. Tonsillectomy 5. Right breast lumpectomy 6. D&C in 1993 Reported Medications Reported Meds & Active Scripts Active Restoril (Temazepam) 15 Mg Cap 15 Mg PO HS PRN Reported Ibuprofen 200 Mg Tab 200 Mg PO Q4H PRN Centrum (Multiple Vitamins W/ Minerals) 1 Chew 1 Tab CHEW DAILY Theragran-M Premier 50+ Caplet (Mv-Mn/FA/Coq10/Lycopene/Lutein) 400 Mcg-250 Mcg- 375 Mcg-250 Mcg Tablet 1 Tab PO DAILY Spencer Aspirin EC Low Dose (Aspirin) 81 Mg Tabdr 81 Mg PO DAILY PRN Active Ordered Medications Current Medications Medications (Trade) Dose Ordered Sig/Shakira Route Start Time Stop Time Status Last Admin (Hibiclens 4% Top Soln) 1 applic ONCE TOPICAL 12/26/17 07:45 12/29/17 07:44 Tranexamic Acid 660 mg/Sodium Chloride 106.6 ml @ 200 mls/hr ONCE IV 12/26/17 07:45 12/27/17 07:44 12/26/17 10:29 Tranexamic Acid 660 mg/Sodium Chloride 106.6 ml @ 200 mls/hr ONCE IV 12/26/17 07:45 12/27/17 07:44 12/26/17 13:45 Bupivacaine Liposome 20 ml/ Sodium Chloride 60 ml @ 120 mls/hr ONCE P-ARTICULR 12/26/17 07:45 12/27/17 07:44 12/26/17 10:58 Cefazolin Sodium 2000 mg/Sodium Chloride 100 ml @ 200 mls/hr WORK [employer] OPERATOR IV 12/26/17 08:00 12/29/17 07:59 Lactated Ringer's 1,000 ml @ 30 mls/hr Q24H PRN IV 12/26/17 08:00 12/29/17 07:59 12/26/17 08:36 Sodium Chloride 500 ml @ 30 mls/hr [id number] PRN IV 12/26/17 08:00 12/29/17 07:59 (Lopressor) 25 mg WORK CAR OPERATOR PRN PO 12/26/17 08:00 12/29/17 07:59 (Betadine 5% Antisepsis Kit) 1 applic WORK CAR OPERATOR PRN EACH NARE 12/26/17 08:00 12/29/17 07:59 12/26/17 08:36 (Chlorhexidine 2% Cloth) 3 pack WORK CAR OPERATOR PRN TOPICAL 12/26/17 08:00 12/29/17 07:59 (NovoLIN R INJ) See Protocol Table ... WORK CAR OPERATOR PRN SQ 12/26/17 08:00 12/29/17 07:59 Lactated Ringer's 1,000 ml @ 80 mls/hr [id number] IV 12/26/17 10:00 12/26/17 14:00 Cefazolin Sodium 1000 mg/Sodium Chloride 100 ml @ 200 mls/hr Q6H IV 12/26/17 17:00 12/27/17 05:29 12/26/17 16:46 (Dilaudid Pf Inj) 0.5 mg Q3H PRN IV PUSH 12/26/17 15:00 12/26/17 18:22 (Ultram) 50 mg Q4H PRN PO 12/26/17 15:00 12/26/17 16:46 (Ultram) 100 mg Q4H PRN PO 12/26/17 15:00 (Zofran Inj) 4 mg Q6H PRN IVP 12/26/17 09:45 (Colace) 100 mg BID PO 12/27/17 21:00 (Ambien) 5 mg HS PRN PO 12/26/17 21:00 (Milk Of Magnesia Liq) 30 ml DAILY PRN PO 12/26/17 09:45 (Theragran M Tab) 1 tab DAILY PO 12/27/17 09:00 Miscellaneous Information ALL NURSING DEPARTME... UNSCH PRN .XX 12/26/17 13:32 12/27/17 13:31 Family History Patient's mother had an ND and tach from poor cardiac cancer. Patient's father also had an ND. Social History Patient drinks alcohol rarely. Denies tobacco use Denies illicit substance use. The patient is a and states has 2 daughters which are still alive. The patient lost 2 sons. One when he was 9 years old and was run over by a truck. The other one from complications of AIDS. Physical Exam Vital Signs Vital Signs Date Time Temp Pulse Resp B/P (MAP) Pulse Ox O2 Delivery O2 Flow Rate FiO2 12/26/17 16:17 97.3 71 16 143/64 (90) 96 12/26/17 16:00 65 16 132/67 (88) 99 Nasal Cannula 2 12/26/17 14:45 62 16 135/63 (87) 100 Nasal Cannula 2 12/26/17 14:30 97.2 66 14 132/58 (82) 99 Nasal Cannula 2 12/26/17 14:15 70 16 130/62 (84) 98 Nasal Cannula 2 12/26/17 14:00 74 14 128/60 (82) 98 Nasal Cannula 2 12/26/17 13:45 72 16 132/62 (85) 98 Nasal Cannula 2 12/26/17 13:34 97.4 86 14 136/65 (88) 100 Simple Mask 6 12/26/17 08:35 98.9 88 20 164/84 (110) 94 12/26/17 08:30 Nasal Cannula 2 Physical Exam GENERAL: This is a well-nourished, well-developed patient, in no apparent distress. SKIN: No rashes, ecchymoses or lesions. Cool and dry. HEAD: Atraumatic. Normocephalic. No temporal or scalp tenderness. EYES: Pupils equal round and reactive. Extraocular motions intact. No scleral icterus. No injection or drainage. ENT: Nose without bleeding, purulent drainage or septal hematoma. Throat without erythema, tonsillar hypertrophy or exudate. Uvula midline. Airway patent. NECK: Trachea midline. No JVD or lymphadenopathy. Supple, nontender, no meningeal signs. CARDIOVASCULAR: Regular rate and rhythm without murmurs, gallops, or rubs. RESPIRATORY: Clear to auscultation. Breath sounds equal bilaterally. No wheezes , rales, or rhonchi. GASTROINTESTINAL: Abdomen soft, non-tender, nondistended. No hepato-splenomegaly , or palpable masses. No guarding. MUSCULOSKELETAL: Extremities without clubbing, cyanosis, or edema. No joint tenderness, effusion, or edema noted. No calf tenderness. Negative Homans sign bilaterally. NEUROLOGICAL: Awake and alert. Cranial nerves II through XII intact. Motor and sensory grossly within normal limits. Five out of 5 muscle strength in all muscle groups. Normal speech. Assessment and Plan Problem List: (1) Status post replacement of right shoulder joint ICD Code: Z96.611 - Presence of right artificial shoulder joint Status: Acute Plan: Management as per orthopedic surgery. Continue pain control with tramadol and Dilaudid as needed for breakthrough pain. With docusate for constipation prevention (2) H/O malignant neoplasm of breast ICD Code: Z85.3 - Personal history of malignant neoplasm of breast Plan: Not on oral chemotherapy. (3) GERD (gastroesophageal reflux disease) ICD Code: K21.9 - Gastro-esophageal reflux disease without esophagitis Plan: Add PPI. Problem Qualifiers (1) GERD (gastroesophageal reflux disease): Qualified Codes: K21.9 - Gastro-esophageal reflux disease without esophagitis Francisco Isabel MD Dec 26, 2017 18:59
[2017-12-26 20:35] VITALS: BP 138/63; PULSE 92; RESP 17; TEMP 97.7; O2SAT 94
[2017-12-26] MEDS ORDERED: ZOLPIDEM TARTRATE 5 MG TAB PO PRN (21:00)
[2017-12-26 22:16] LABS: HEMOGLOBIN 10.8 GM/DL (11.6-15.3); MEAN CELL VOLUME 87.2 FL (80.0-100.0); MEAN CORPUSCULAR HEMOGLOBIN 29.4 PG (27.0-34.0); MEAN CORPUSCULAR HGB CONC 33.7 % (32.0-36.0); MEAN PLATELET VOLUME 7.5 FL (7.0-11.0); PLATELET COUNT 156 TH/MM3 (150-450); RED BLOOD COUNT 3.67 MIL/MM3 (4.00-5.30); RED CELL DISTRIBUTION WIDTH 13.9 % (11.6-17.2)
[2017-12-26 22:45] LABS: BICARBONATE 30.4 MEQ/L (21.0-32.0); CALCIUM 8.3 MG/DL (8.5-10.1); CREATININE 0.64 MG/DL (0.50-1.00); MAGNESIUM 1.7 MG/DL (1.5-2.5); PHOSPHORUS 3.9 MG/DL (2.5-4.9)
[2017-12-27 00:45] VITALS: BP 161/81; PULSE 96; RESP 18; TEMP 98.2; O2SAT 94
[2017-12-27] MEDS: traMADol HCL 50 MG TAB PO PRN ×2 (01:14→08:34)
[2017-12-27 04:20] VITALS: BP 121/56; PULSE 96; RESP 18; TEMP 99; O2SAT 92
--- NOTE | 2017-12-27 07:02 | PD.ORT.PN ---
Subjective Post Op Day #: 1 Subjective Remarks She is doing relatively well. She feels very sedated from last night. She has very little pain at this time. Distance Walked 20 feet with PT. Objective Vitals Vital Signs Date Time Temp Pulse Resp B/P (MAP) Pulse Ox O2 Delivery O2 Flow Rate FiO2 12/27/17 00:45 98.2 96 18 161/81 (107) 94 12/27/17 00:38 Nasal Cannula 2.00 12/26/17 20:35 97.7 92 17 138/63 (88) 94 12/26/17 20:22 94 Nasal Cannula 2.00 12/26/17 16:17 97.3 71 16 143/64 (90) 96 12/26/17 16:00 65 16 132/67 (88) 99 Nasal Cannula 2 12/26/17 14:45 62 16 135/63 (87) 100 Nasal Cannula 2 12/26/17 14:30 97.2 66 14 132/58 (82) 99 Nasal Cannula 2 12/26/17 14:15 70 16 130/62 (84) 98 Nasal Cannula 2 12/26/17 14:00 74 14 128/60 (82) 98 Nasal Cannula 2 12/26/17 13:45 72 16 132/62 (85) 98 Nasal Cannula 2 12/26/17 13:34 97.4 86 14 136/65 (88) 100 Simple Mask 6 12/26/17 08:35 98.9 88 20 164/84 (110) 94 12/26/17 08:30 Nasal Cannula 2 I/O 12/26/17 12/26/17 12/26/17 12/27/17 12/27/17 12/27/17 07:00 15:00 23:00 07:00 15:00 23:00 Intake Total 2100 ml Output Total 200 ml Balance 1900 ml Intake IV Total 2100 ml Output Estimated Blood Loss 200 ml Result Diagram: 12/26/17220312/26/172203 Imaging Last 72 hours Impressions Shoulder X-Ray 12/26/17 0000 Signed Impressions: Service Date/Time: Tuesday, December 26, 2017 14:02 - CONCLUSION: 1. Postoperative right shoulder joint replacement. Krzysztof Amador MD Objective Remarks She has just been placed out of bed into a chair. She is resting comfortably. The neurovascular status of the upper extremity is intact. The dressing is dry and intact. Assessment & Plan Ortho Post Op Day #: 1 Problem List: (1) Primary osteoarthritis of right shoulder ICD Codes: M19.011 - Primary osteoarthritis, right shoulder Status: Resolved (2) Status post replacement of right shoulder joint ICD Codes: Z96.611 - Presence of right artificial shoulder joint Status: Acute Plan: Continue postoperative care and therapy. Assessment and Plan Condition: Good. Orthopedically stable. Discharge plans: Home with home health care. An appointment was scheduled through the office. Prescriptions: Tramadol 50 mg Julisa Sexton MD (Charles) Dec 27, 2017 07:02
[2017-12-27 07:26] LABS: HEMATOCRIT 34.3 % (35.0-46.0); HEMOGLOBIN 11.5 GM/DL (11.6-15.3)
[2017-12-27] MEDS ORDERED: TRAM50 PO (07:30)
--- NOTE | 2017-12-27 07:35 | HHI.DS ---
Discharge Summary Admission Date Dec 26, 2017 at 07:13 Admitting Diagnosis Primary osteoarthritis, right shoulder. Diagnosis: (1) Primary osteoarthritis of right shoulder Diagnosis: Principal ICD Codes: M19.011 - Primary osteoarthritis, right shoulder Status: Resolved (2) Status post replacement of right shoulder joint Diagnosis: Principal ICD Codes: Z96.611 - Presence of right artificial shoulder joint Status: Acute Procedures Right total shoulder arthroplasty with [place] ReUnion prosthesis on 12/26/2017 Brief History This is a 87 year old female patient CBC/BMP: 12/26/17220312/26/172203 Significant Findings Laboratory Tests Test 12/26/17 22:04 12/27/17 06:40 Red Blood Count 3.67 MIL/MM3 (4.00-5.30) Hemoglobin 10.8 GM/DL (11.6-15.3) 11.5 GM/DL (11.6-15.3) Hematocrit 32.0 % (35.0-46.0) 34.3 % (35.0-46.0) Random Glucose 116 MG/DL (74-106) Calcium Level 8.3 MG/DL (8.5-10.1) Estimat Glomerular Filtration Rate 88 ML/MIN (>89) Imaging Last 72 hours Impressions Shoulder X-Ray 12/26/17 0000 Signed Impressions: Service Date/Time: Tuesday, December 26, 2017 14:02 - CONCLUSION: 1. Postoperative right shoulder joint replacement. Krzysztof Amador MD PE at Discharge She has just been placed out of bed into a chair. She is resting comfortably. The neurovascular status of the upper extremity is intact. The dressing is dry and intact. Hospital Course The patient was admitted as noted above. The above noted operative procedure was carried out that day. Preoperatively prophylactic antibiotics were administered Ancef according to protocol. These were continued postoperatively. The patient also received tranexamic acid to help with hemostasis according to protocol. In the postanesthesia care unit, mechanical methods of DVT prophylaxis in the form of JEANNIE stockings and sequentials were initiated. Physical therapy was initiated on the day of surgery. On postoperative day #1 physical therapy continued. The patient continued physical therapy throughout the hospitalization. The distance walked improved throughout the hospitalization. The patient was discharged on postoperative day 1 with the disposition being to home with home health care. An appointment for follow-up was made prior to admission. Pt Condition on Discharge: Good Discharge Disposition: Disch w/ Home Health Serv Discharge Instructions Diet Instructions: As Tolerated, No Restrictions Activities You Can Perform: Full Weight Bearing, Shower Only-No Bath Activities to Avoid: Lifting/Bending, Strenuous Activity, Bathing, Driving Additional Activity Instruc.: The right shoulder is not to be externally rotated beyond neutral. No forceful motion of the right shoulder is to be done in to internal rotation. Follow up Referrals: Orthopedics with Julisa Sexton MD ([place]) New Medications: Tramadol (Ultram) 50 Mg Tab 50 MG PO Q4H PRN for PAIN SCALE 1 TO 10, #40 TAB Continued Medications: Aspirin DR (Spencer Aspirin EC Low Dose) 81 Mg Tabdr 81 MG PO DAILY PRN for HEART HEALTH Ibuprofen (Ibuprofen) 200 Mg Tab 200 MG PO Q4H PRN for PAIN SCALE 1 TO 10, TAB 0 Refills Multiple Vitamins W/ Minerals (Centrum) 1 Chew 1 TAB CHEW DAILY for Nutritional Supplement, TAB 0 Refills Mv-Mn/FA/Coq10/Lycopene/Lutein (Theragran-M Premier 50+ Caplet) 400 Mcg-250 Mcg- 375 Mcg-250 Mcg Tablet 1 TAB PO DAILY Temazepam (Restoril) 15 Mg Cap 15 MG PO HS PRN for INSOMNIA, #30 CAP Julisa Sexton MD ([place]) Dec 27, 2017 07:35
[2017-12-27 07:49] VITALS: BP 129/59; PULSE 102; RESP 18; TEMP 98.2; O2SAT 95
[2017-12-27] MEDS: MULTIVITAMINS/MINERALS THERAPEUTIC TAB PO SCH (08:32)
[2017-12-27] MEDS ORDERED: LYCOPENE PO SCH (09:00)
[2017-12-27] MEDS ORDERED: LUTEIN PO SCH (09:00)
[2017-12-27] MEDS ORDERED: MV MN PO SCH (09:00)
[2017-12-27] MEDS ORDERED: [UNRECOGNIZED DRUG - OTHER] PO SCH (09:00)
[2017-12-27] MEDS ORDERED: COQ10 PO SCH (09:00)
[2017-12-27 12:00] VITALS: BP 122/59; PULSE 110; RESP 18; TEMP 98.3; O2SAT 92
--- NOTE | 2017-12-27 14:14 | HHI.PR ---
Subjective Remarks Pt was asleep when I came in but easily arousable. Denies any CP/SOB/N/V. States that her pain is currently controlled. Objective Vitals Vital Signs Date Time Temp Pulse Resp B/P (MAP) Pulse Ox O2 Delivery O2 Flow Rate FiO2 12/27/17 12:00 98.3 110 18 122/59 (80) 92 12/27/17 09:35 18 12/27/17 07:49 98.2 102 18 129/59 (82) 95 12/27/17 04:20 99.0 96 18 121/56 (77) 92 12/27/17 00:45 98.2 96 18 161/81 (107) 94 12/27/17 00:38 Nasal Cannula 2.00 12/26/17 20:35 97.7 92 17 138/63 (88) 94 12/26/17 20:22 94 Nasal Cannula 2.00 12/26/17 16:17 97.3 71 16 143/64 (90) 96 12/26/17 16:00 65 16 132/67 (88) 99 Nasal Cannula 2 12/26/17 14:45 62 16 135/63 (87) 100 Nasal Cannula 2 12/26/17 14:30 97.2 66 14 132/58 (82) 99 Nasal Cannula 2 12/26/17 14:15 70 16 130/62 (84) 98 Nasal Cannula 2 I/O 12/26/17 12/26/17 12/26/17 12/27/17 12/27/17 12/27/17 07:00 15:00 23:00 07:00 15:00 23:00 Intake Total 2100 ml 100 ml 460 ml Output Total 200 ml Balance 1900 ml 100 ml 460 ml Intake Oral 360 ml IV Total 2100 ml 100 ml 100 ml Output Estimated Blood Loss 200 ml # Voids 2 # Bowel Movements 0 Result Diagram: 12/27/17 0640 12/26/174 Imaging Last Impressions Shoulder X-Ray 12/26/17 0000 Signed Impressions: Service Date/Time: Tuesday, December 26, 2017 14:02 - CONCLUSION: 1. Postoperative right shoulder joint replacement. Krzysztof Aamdor MD Objective Remarks GENERAL: laying in bed, appears comfortable. CARDIOVASCULAR: Regular rate and rhythm without murmurs RESPIRATORY: Clear to auscultation. Breath sounds equal bilaterally. No wheezes GASTROINTESTINAL: Abdomen soft, non-tender, nondistended. No guarding. MUSCULOSKELETAL: Extremities without edema. right shoulder in splint, able to wiggle fingers and squeeze my hand NEUROLOGICAL: Awake and alert. Normal speech. A/P Problem List: (1) Status post replacement of right shoulder joint ICD Code: Z96.611 - Presence of right artificial shoulder joint Status: Acute (2) H/O malignant neoplasm of breast ICD Code: Z85.3 - Personal history of malignant neoplasm of breast (3) GERD (gastroesophageal reflux disease) ICD Code: K21.9 - Gastro-esophageal reflux disease without esophagitis Assessment and Plan (1) Status post replacement of right shoulder joint Management as per orthopedic surgery. Continue pain control with tramadol and Dilaudid as needed for breakthrough pain. With docusate for constipation prevention hb stable at 11.5 PT evaluated the pt and recommends d/c to rehab (2) H/O malignant neoplasm of breast Not on oral chemotherapy. (3) GERD (gastroesophageal reflux disease) on PPI. Brittny Espinal MD Dec 27, 2017 14:14
[2017-12-27 15:21] VITALS: BP 169/75; PULSE 115; RESP 18; TEMP 97.8; O2SAT 93
[2017-12-27] MEDS: ACETAMINOPHEN 325 MG TAB PO PRN (17:44)
[2017-12-27] MEDS: LACTATED RINGER'S 1000 ML INJ 1,000 ML IV SCH (19:05)
[2017-12-27] MEDS: DOCUSATE SODIUM 100 MG CAP PO SCH (19:15)
[2017-12-27 20:00] VITALS: BP 124/58; PULSE 102; RESP 18; TEMP 98; O2SAT 90
[2017-12-28 00:11] VITALS: BP 132/60; PULSE 104; RESP 18; TEMP 98; O2SAT 93
[2017-12-28] MEDS: ACETAMINOPHEN 325 MG TAB PO PRN ×3 (03:37→16:15)
[2017-12-28 03:54] VITALS: BP 142/66; PULSE 102; RESP 18; TEMP 98.3; O2SAT 96
--- NOTE | 2017-12-28 05:55 | PD.ORT.PN ---
Subjective Post Op Day #: 2 Subjective Remarks She is doing relatively well. She had some pain last night but did not take her medication on time. She was a little unsteady yesterday. Distance Walked 25 feet twice PT. Objective Vitals Vital Signs Date Time Temp Pulse Resp B/P (MAP) Pulse Ox O2 Delivery O2 Flow Rate FiO2 12/28/17 03:54 98.3 102 18 142/66 (91) 96 12/28/17 03:54 96 Nasal Cannula 2.00 12/28/17 00:11 98.0 104 18 132/60 (84) 93 12/28/17 00:11 93 Nasal Cannula 3.00 12/27/17 20:00 98.0 102 18 124/58 (80) 90 12/27/17 15:21 97.8 115 18 169/75 (106) 93 12/27/17 12:00 98.3 110 18 122/59 (80) 92 12/27/17 09:35 18 12/27/17 07:49 98.2 102 18 129/59 (82) 95 I/O 12/27/17 12/27/17 12/27/17 12/28/17 12/28/17 12/28/17 07:00 15:00 23:00 07:00 15:00 23:00 Intake Total 460 ml 480 ml Balance 460 ml 480 ml Intake Oral 360 ml 480 ml IV Total 100 ml # Voids 2 3 # Bowel Movements 0 0 Result Diagram: 12/27/17 0640 12/26/17 2204 Imaging Last 72 hours Impressions Shoulder X-Ray 12/26/17 0000 Signed Impressions: Service Date/Time: Tuesday, December 26, 2017 14:02 - CONCLUSION: 1. Postoperative right shoulder joint replacement. Krzysztof Amador MD Procedures Right total shoulder arthroplasty with [place] ReUnion prosthesis on 12/26/2017 Objective Remarks She is resting comfortably, supine in bed. The neurovascular status of the upper extremity is intact. The dressing is dry and intact. Assessment & Plan Ortho Post Op Day #: 2 Problem List: (1) Primary osteoarthritis of right shoulder ICD Codes: M19.011 - Primary osteoarthritis, right shoulder Status: Resolved (2) Status post replacement of right shoulder joint ICD Codes: Z96.611 - Presence of right artificial shoulder joint Status: Acute Plan: Continue postoperative care and therapy. Assessment and Plan Condition: Good. Orthopedically stable. Discharge plans: Home with home health care, possibly a [facility] facility. An appointment was scheduled through the office. Prescriptions: Tramadol 50 mg Julisa Sexton MD ([place]) Dec 28, 2017 05:55
--- NOTE | 2017-12-28 06:21 | HHI.DS ---
Discharge Summary Admission Date Dec 26, 2017 at 07:13 Discharge Date: Dec 28, 2017 Admitting Diagnosis Primary osteoarthritis, right shoulder. Diagnosis: (1) Primary osteoarthritis of right shoulder Diagnosis: Principal ICD Codes: M19.011 - Primary osteoarthritis, right shoulder Status: Resolved (2) Status post replacement of right shoulder joint Diagnosis: Principal ICD Codes: Z96.611 - Presence of right artificial shoulder joint Status: Acute Procedures Right total shoulder arthroplasty with [place] ReUnion prosthesis on 12/26/2017 Brief History This is a 87 year old female patient has had right shoulder pain nonresponsive to conservative measures interfering with her activities of daily living for years. She has limited range of motion. Physical findings showed that she had severe crepitation on motion with tenderness on motion. X-rays showed loss of articular cartilage to expose subchondral bone with osteophytes in the shoulder. CBC/BMP: 12/27/17 0640 12/26/17 2204 Significant Findings Laboratory Tests Test 12/26/17 22:04 12/27/17 06:40 Red Blood Count 3.67 MIL/MM3 (4.00-5.30) Hemoglobin 10.8 GM/DL (11.6-15.3) 11.5 GM/DL (11.6-15.3) Hematocrit 32.0 % (35.0-46.0) 34.3 % (35.0-46.0) Random Glucose 116 MG/DL (74-106) Calcium Level 8.3 MG/DL (8.5-10.1) Estimat Glomerular Filtration Rate 88 ML/MIN (>89) Imaging Last 72 hours Impressions Shoulder X-Ray 12/26/17 0000 Signed Impressions: Service Date/Time: Tuesday, December 26, 2017 14:02 - CONCLUSION: 1. Postoperative right shoulder joint replacement. Krzysztof Amador MD PE at Discharge She is resting comfortably, supine in bed. The neurovascular status of the upper extremity is intact. The dressing is dry and intact. Transfer Summary She is to have therapy twice daily. She will have active, active-assisted motion gently. She is to do some table slides. She is not to externally rotate the arm beyond neutral for 6 weeks postop. She has not to do any forceful internal rotation with the right shoulder for 6 weeks. Hospital Course The patient was admitted as noted above. The above noted operative procedure was carried out that day. Preoperatively prophylactic antibiotics were administered Ancef according to protocol. These were continued postoperatively. The patient also received tranexamic acid to help with hemostasis according to protocol. In the postanesthesia care unit, mechanical methods of DVT prophylaxis in the form of JEANNIE stockings and sequentials were initiated. Physical therapy was initiated on the day of surgery. On postoperative day #1 physical therapy continued. The patient continued physical therapy throughout the hospitalization. The distance walked improved throughout the hospitalization. The patient was discharged on postoperative day 2 with the disposition being to home with home health care. An appointment for follow-up was made prior to admission. Pt Condition on Discharge: Good Discharge Disposition: Disch w/ Home Health Serv Discharge Instructions Diet Instructions: As Tolerated, No Restrictions Activities You Can Perform: Full Weight Bearing, Shower Only-No Bath Activities to Avoid: Lifting/Bending, Strenuous Activity, Bathing, Driving Additional Activity Instruc.: The right shoulder is not to be externally rotated beyond neutral. No forceful motion of the right shoulder is to be done in to internal rotation. Follow up Referrals: Orthopedics with Julisa Sexton MD ([place]) New Medications: Tramadol (Ultram) 50 Mg Tab 50 MG PO Q4H PRN for PAIN SCALE 1 TO 10, #40 TAB Continued Medications: Aspirin DR ([place] Aspirin EC Low Dose) 81 Mg Tabdr 81 MG PO DAILY PRN for HEART HEALTH Ibuprofen (Ibuprofen) 200 Mg Tab 200 MG PO Q4H PRN for PAIN SCALE 1 TO 10, TAB 0 Refills Multiple Vitamins W/ Minerals (Centrum) 1 Chew 1 TAB CHEW DAILY for Nutritional Supplement, TAB 0 Refills Mv-Mn/FA/Coq10/Lycopene/Lutein (Theragran-M Premier 50+ Caplet) 400 Mcg-250 Mcg- 375 Mcg-250 Mcg Tablet 1 TAB PO DAILY Temazepam (Restoril) 15 Mg Cap 15 MG PO HS PRN for INSOMNIA, #30 CAP Julisa Sexton MD ([place]) Dec 28, 2017 06:20
[2017-12-28 07:01] LABS: HEMATOCRIT 29.3 % (35.0-46.0); HEMOGLOBIN 10.1 GM/DL (11.6-15.3)
[2017-12-28 08:00] VITALS: BP 135/63; PULSE 93; RESP 20; TEMP 98; O2SAT 93
[2017-12-28] MEDS: DOCUSATE SODIUM 100 MG CAP PO SCH (08:26)
[2017-12-28] MEDS: MULTIVITAMINS/MINERALS THERAPEUTIC TAB PO SCH (08:26)
[2017-12-28] MEDS ORDERED: PANTOPRAZOLE SOD 20 MG DELAYED RELEASE TAB PO SCH (09:00)
--- NOTE | 2017-12-28 11:55 | HHI.PR ---
Subjective Remarks Patient seen around 10 this morning. States that she did not sleep very well overnight because of her pain. She just received a pain pill at that time. About to do physical therapy in a few. Denies any nausea or vomiting, chest pains or shortness of breath. Objective Vitals Vital Signs Date Time Temp Pulse Resp B/P (MAP) Pulse Ox O2 Delivery O2 Flow Rate FiO2 12/28/17 08:00 98.0 93 20 135/63 (87) 93 12/28/17 03:54 98.3 102 18 142/66 (91) 96 12/28/17 03:54 96 Nasal Cannula 2.00 12/28/17 00:11 98.0 104 18 132/60 (84) 93 12/28/17 00:11 93 Nasal Cannula 3.00 12/27/17 20:00 98.0 102 18 124/58 (80) 90 12/27/17 15:21 97.8 115 18 169/75 (106) 93 12/27/17 12:00 98.3 110 18 122/59 (80) 92 I/O 12/27/17 12/27/17 12/27/17 12/28/17 12/28/17 12/28/17 07:00 15:00 23:00 07:00 15:00 23:00 Intake Total 460 ml 480 ml 480 ml Balance 460 ml 480 ml 480 ml Intake Oral 360 ml 480 ml 480 ml IV Total 100 ml # Voids 2 3 2 # Bowel Movements 0 0 0 Result Diagram: 12/28/17 0637 12/26/17 2204 Imaging Last Impressions Shoulder X-Ray 12/26/17 0000 Signed Impressions: Service Date/Time: Tuesday, December 26, 2017 14:02 - CONCLUSION: 1. Postoperative right shoulder joint replacement. Krzysztof Amador MD Objective Remarks GENERAL: laying in bed, appears comfortable. CARDIOVASCULAR: Regular rate and rhythm without murmurs RESPIRATORY: Clear to auscultation. Breath sounds equal bilaterally. No wheezes GASTROINTESTINAL: Abdomen soft, non-tender, nondistended. No guarding. MUSCULOSKELETAL: Extremities without edema. right shoulder in splint, able to wiggle fingers and squeeze my hand NEUROLOGICAL: Awake and alert. Normal speech. A/P Problem List: (1) Status post replacement of right shoulder joint ICD Code: Z96.611 - Presence of right artificial shoulder joint Status: Acute (2) H/O malignant neoplasm of breast ICD Code: Z85.3 - Personal history of malignant neoplasm of breast (3) GERD (gastroesophageal reflux disease) ICD Code: K21.9 - Gastro-esophageal reflux disease without esophagitis Assessment and Plan (1) Status post replacement of right shoulder joint Management as per orthopedic surgery. Continue pain control with tramadol and Dilaudid as needed for breakthrough pain. With docusate for constipation prevention hb stable at 10.1 PT evaluated the pt and recommends d/c to rehab, however per RN, pt would rather go home w daughter. CM assisting w d/c planning (2) H/O malignant neoplasm of breast Not on oral chemotherapy. (3) GERD (gastroesophageal reflux disease) on PPI. Discharge Planning per primary team Pt clinically is doing well Brittny Espinal MD Dec 28, 2017 11:55
[2017-12-28 11:56] VITALS: BP 120/56; PULSE 91; RESP 19; TEMP 98.1; O2SAT 92
[2017-12-28] MEDS: LACTATED RINGER'S 1000 ML INJ 1,000 ML IV SCH (12:00)
== END 2017-12-28 16:54 | disposition home health service (06) | DRG 483 ==
LOC: HSDI 07:13 → N06A 16:19
PROVIDERS: ADMIT Orthopaedic Surgery; ATTEND Orthopaedic Surgery
PROC: 3E0T3BZ Introduction of Anesthetic Agent into Peripheral Nerves and Plexi, Percutaneous Approach (ICD-10-PCS; 2017-12-26)
PROC: 0RRJ0JZ Replacement of Right Shoulder Joint with Synthetic Substitute, Open Approach (ICD-10-PCS; principal; 2017-12-26 10:09)
DX: M19.011 Primary osteoarthritis, right shoulder (principal); K21.9 Gastro-esophageal reflux disease without esophagitis; Z85.3 Personal history of malignant neoplasm of breast; Z88.1 Allergy status to other antibiotic agents; Z88.5 Allergy status to narcotic agent; Z88.8 Allergy status to other drugs, medicaments and biological substances
CPT/HCPCS: 73030; 80048; 83735; 84100; 85014; 85018; 85027; 86850; 86900; 86901; 94150; C1776; J0131; J0690; J1170; J1580; J2250; J2370; J2405; J2710; J3010; J7120

== ENCOUNTER → 2018-02-06 | Outpatient (CLI) | payer MEDICARE ==
[~2018-02-06] MED LIST changes: +TRAM50 PO
[2018-02-06 10:14] LABS: HEMATOCRIT 37.8 % (35.0-46.0); HEMOGLOBIN 12.6 GM/DL (11.6-15.3); MEAN CELL VOLUME 85.8 FL (80.0-100.0); MEAN CORPUSCULAR HEMOGLOBIN 28.5 PG (27.0-34.0); MEAN CORPUSCULAR HGB CONC 33.2 % (32.0-36.0); MEAN PLATELET VOLUME 8.2 FL (7.0-11.0); PLATELET COUNT 184 TH/MM3 (150-450); RED CELL DISTRIBUTION WIDTH 14.4 % (11.6-17.2); WHITE BLOOD COUNT 4.1 TH/MM3 (4.0-11.0)
[2018-02-06 10:16] LABS: ALBUMIN 3.4 GM/DL (3.4-5.0); ALT (GPT) 25 U/L (10-53); AST (GOT) 31 U/L (15-37); BICARBONATE 27.7 MEQ/L (21.0-32.0); BLOOD UREA NITROGEN 12 MG/DL (7-18); CALCIUM 9.6 MG/DL (8.5-10.1); CHLORIDE 108 MEQ/L (98-107); CHOLESTEROL 156 MG/DL (120-200); CREATININE 0.74 MG/DL (0.50-1.00); GLOMERULAR FILTRATION RATE 74 ML/MIN (>89); GLUCOSE,FASTING 105 MG/DL (74-99); SODIUM (NA) 143 MEQ/L (136-145)
[2018-02-06 10:19] LABS: ALKALINE PHOSPHATASE 83 U/L (45-117); CHOLESTEROL/ HDL RATIO 2.58 RATIO; HDL CHOLESTEROL 60.3 MG/DL (40.0-60.0); LDL CHOLESTEROL 84 MG/DL (0-99); LDL CHOLESTEROL DIRECT 89 MG/DL (0-99); TOTAL BILIRUBIN ADULT 0.7 MG/DL (0.2-1.0); TOTAL PROTEIN 6.7 GM/DL (6.4-8.2); TRIGLYCERIDES 59 MG/DL (42-150)
== END ==
LOC: PLAB 07:26
PROVIDERS: ATTEND Internal Medicine
DX: I10 Essential (primary) hypertension (principal)
CPT/HCPCS: 36415; 80053; 80061; 83721; 85027

== ENCOUNTER 2018-03-24 08:06 | Emergency (ER) | payer MEDICARE ==
[~2018-03-24] VITALS: Ht 162.6 cm; Wt 60.0 kg
[2018-03-24 08:09] VITALS: BP 162/71; PULSE 94; RESP 16; TEMP 98; O2SAT 97
[2018-03-24 08:32] VITALS: BP 144/78; PULSE 82; RESP 18; O2SAT 95
[2018-03-24] MEDS ORDERED: APIX5TAB PO (08:32)
[2018-03-24] MEDS ORDERED: THER650C (08:32)
[2018-03-24] MEDS ORDERED: MULT400T PO (08:32)
--- NOTE | 2018-03-24 09:40 | PD ---
HPI Chief Complaint: Cardiac Complaint Time Seen by Provider: 08:26 Travel History International Travel<30 days: No Contact w/Intl Traveler<30days: No Traveled to known affect area: No History of Present Illness HPI Patient 88-year-old female presents emergency department for evaluation of rash on her back. Patient has a history of atrial fibrillation requiring anticoagulation. She had been on Xarelto poorly tolerated secondary to side effect of insomnia, 3 days ago was switched to Eliquis by her golf technician Dr. Aden. Patient states that yesterday she started itching all over and then this morning developed a rash. Not able to follow-up with the office is the weekend decided to come in and be seen. Denies any chest pain shortness of breath focalized weakness difficulty swallowing lip swelling. PFSH Past Medical History Hx Anticoagulant Therapy: Yes (ASA 81MG DAILY) Arthritis: Yes Asthma: No Anxiety: Yes Depression: No Heart Rhythm Problems: No Cancer: Yes (RIGHT BREAST WITH LYMPH NODES REMOVED) Cardiovascular Problems: No High Cholesterol: Yes Chemotherapy: Yes Chest Pain: No Congestive Heart Failure: No COPD: No Cerebrovascular Accident: No Diabetes: No (PRE) Diminished Hearing: No Endocrine: No Gastrointestinal Disorders: Yes (GERD, CONSTIPATION) GERD: Yes Genitourinary: Yes (FREQ. UTI, bladder stimulator 2016) Headaches: No Hepatitis: No Hiatal Hernia: Yes Hypertension: No Immune Disorder: No Implanted Vascular Access Dvce: Yes (Port removed 2001) Kidney Stones: Yes Medical other: No Musculoskeletal: Yes (ARTHRITIS) Neurologic: Yes (TRANSIENT VERTIGO/ SYNCOPE, ESSENTIAL TREMORS) Psychiatric: Yes (DEPRESSION AND ANXIETY) Reproductive: No Respiratory: Yes ( SLEEP APNEA NO CPAP, BRONCHITIS) Immunizations Current: Yes Migraines: No Radiation Therapy: Yes Renal Failure: No Seizures: No Thyroid Disease: No Ulcer: No Menopausal: Yes Dilation and Curettage (D&C): Yes (1993) Past Surgical History Abdominal Surgery: Yes (RIGHT HEMICOLECTOMY, REPAIR OF ANAL STRICTURE, ) AICD: No Appendectomy: Yes Arteriovenous Shunt: No Body Medical Devices: interstem, right side in back wire to left side of tail Cardiac Surgery: No Ear Surgery: No Endocrine Surgery: No Eye Surgery: Yes (bi lat CATARACT EXTRACT.) Genitourinary Surgery: Yes (LEFT ESWL, INTERSTEM IMPLANT) Gynecologic Surgery: Yes (D & C) Insulin Pump: No Joint Replacement: No Neurologic Surgery: No Oral Surgery: Yes (T & A) Pacemaker: No Thoracic Surgery: No Tonsillectomy: Yes Other Surgery: Yes (RT BREAST LUMPECTOMY) Social History Alcohol Use: Yes (RARELY) Tobacco Use: No Substance Use: No Allergies-Medications (Allergen,Severity, Reaction): Coded Allergies: ciprofloxacin (Unverified Allergy, Severe, RASH, VERTIGO, 12/26/17) fentanyl (Unverified Allergy, Severe, 12/26/17) DENIES ALLERGY 11/28/11 fexofenadine (Unverified Allergy, Severe, SEVERE HEADACHES, 12/26/17) hydrocodone (Verified Allergy, Severe, itching, 12/26/17) loratadine (Unverified Allergy, Severe, SEVERE HEADACHES, 12/26/17) meperidine (Unverified Allergy, Severe, Hallucinations, 12/26/17) escitalopram (Unverified Allergy, Intermediate, TREMORS, ARMS & LEGS, 12/26) mirtazapine (Unverified Allergy, Intermediate, TREMORS ARMS & LEGS, ) chlorhexidine (Verified Allergy, Unknown, Itching, 12/26/17) metoprolol (Verified Allergy, Unknown, 03/24/18) insomnia diclofenac (Verified Adverse Reaction, Severe, gi distress, 12/26/17) cefuroxime (Unverified Adverse Reaction, Mild, N/V, 12/26/17) codeine (Unverified Adverse Reaction, Mild, N/V, 12/26/17) oxycodone (Unverified Adverse Reaction, Mild, N/V, 12/26/17) Reported Meds & Prescriptions Reported Meds & Active Scripts Active Reported Theracran Hp (Cranberry (Vaccinium Macrocarpon)) 650 Mg Cap Eliquis (Apixaban) 5 Mg Tab 5 Mg PO BID Multaq (Dronedarone) 400 Mg Tab 400 Mg PO BID Review of Systems Except as stated in HPI: all other systems reviewed are Neg Physical Exam Narrative GENERAL: Well-developed well-nourished, elderly female in no obvious distress peer SKIN: Focused skin assessment warm/dry. Very faint rash on the middle of the low back, not observed any other place of the patient's body, could be consistent with a contact dermatitis or early hives. HEAD: Atraumatic. Normocephalic. EYES: Pupils equal and round. No scleral icterus. No injection or drainage. ENT: No nasal bleeding or discharge. Mucous membranes pink and moist. NECK: Trachea midline. No JVD. CARDIOVASCULAR: Regular rate and rhythm. No murmur appreciated. RESPIRATORY: No accessory muscle use. Clear to auscultation. Breath sounds equal bilaterally. GASTROINTESTINAL: Abdomen soft, non-tender, nondistended. Hepatic and splenic margins not palpable. MUSCULOSKELETAL: No obvious deformities. No clubbing. No cyanosis. No edema. NEUROLOGICAL: Awake and alert. No obvious cranial nerve deficits. Motor grossly within normal limits. Normal speech. PSYCHIATRIC: Appropriate mood and affect; insight and judgment normal. Data Data Last Documented VS Vital Signs Date Time Temp Pulse Resp B/P (MAP) Pulse Ox O2 Delivery O2 Flow Rate FiO2 03/24/18 08:32 82 18 144/78 (100) 95 Room Air 03/24/18 08:09 98.0 Orders Orders Electrocardiogram (03/24/18 ) Basic Metabolic Panel (Bmp) (03/24/18 09:38) Complete Blood Count With Diff (03/24/18 09:38) Prothrombin Time / Inr (Pt) (03/24/18 09:38) Act Partial Throm Time (Ptt) (03/24/18 09:38) Iv Access Insert/Monitor (03/24/18 09:38) Sodium Chloride 0.9% Flush (Ns Flush) (03/24/18 09:45) Ed Discharge Order (03/24/18 11:22) Labs Laboratory Tests Test 03/24/18 09:57 White Blood Count 4.9 TH/MM3 Red Blood Count 4.64 MIL/MM3 Hemoglobin 13.0 GM/DL Hematocrit 39.6 % Mean Corpuscular Volume 85.3 FL Mean Corpuscular Hemoglobin 28.1 PG Mean Corpuscular Hemoglobin Concent 32.9 % Red Cell Distribution Width 14.6 % Platelet Count 193 TH/MM3 Mean Platelet Volume 7.7 FL Neutrophils (%) (Auto) 52.6 % Lymphocytes (%) (Auto) 32.1 % Monocytes (%) (Auto) 12.4 % Eosinophils (%) (Auto) 1.8 % Basophils (%) (Auto) 1.1 % Neutrophils # (Auto) 2.6 TH/MM3 Lymphocytes # (Auto) 1.6 TH/MM3 Monocytes # (Auto) 0.6 TH/MM3 Eosinophils # (Auto) 0.1 TH/MM3 Basophils # (Auto) 0.1 TH/MM3 CBC Comment DIFF FINAL Differential Comment Prothrombin Time 10.3 SEC Prothromb Time International Ratio 1.0 RATIO Activated Partial Thromboplast Time 23.1 SEC Blood Urea Nitrogen 15 MG/DL Creatinine 0.86 MG/DL Random Glucose 97 MG/DL Calcium Level 9.6 MG/DL Sodium Level 140 MEQ/L Potassium Level 4.4 MEQ/L Chloride Level 107 MEQ/L Carbon Dioxide Level 26.9 MEQ/L Anion Gap 6 MEQ/L Estimat Glomerular Filtration Rate 62 ML/MIN MDM Medical Decision Making Medical Screen Exam Complete: Yes Emergency Medical Condition: Yes Differential Diagnosis Medication reaction, allergic reaction, contact dermatitis. Narrative Course Patient room to the emergency department, basic labs were sent for the possibility that she may have to be anticoagulated by other means. Ultimately discussed with Dr. Whittaker who is on-call for and at this point he recommends discontinuing all anticoagulation and following up with Dr. Aden on Monday. Currently EKG does show patient in sinus rhythm. This recommendation was passed to her and she is agreeable. No indication further workup at this time. Stable for discharge Diagnosis Primary Impression: Rash Additional Impression: Allergic reaction Additional Instructions: Stop Eliquis and call Dr. Aden first thing Monday for further recommendations. Med/Other Pt SpecificInfo: Prescription(s) given Disposition: DISCHARGE HOME Condition: Stable Godfrey Osullivan MD Mar 24, 2018 09:40
[2018-03-24] MEDS ORDERED: SODIUM CHLORIDE 0.9% FLUSH 10 ML FLUSH IVF PRN (09:45)
[2018-03-24 10:15] LABS: AUTOMATED NEUTROPHIL # 2.6 TH/MM3 (1.8-7.7); BASOPHIL # 0.1 TH/MM3 (0-0.2); BASOPHIL % 1.1 % (0.0-2.0); EOSINOPHIL # 0.1 TH/MM3 (0-0.4); EOSINOPHIL % 1.8 % (0.0-4.0); HEMATOCRIT 39.6 % (35.0-46.0); LYMPH % 32.1 % (9.0-44.0); LYMPHOCYTE # 1.6 TH/MM3 (1.0-4.8); MEAN CELL VOLUME 85.3 FL (80.0-100.0); MEAN CORPUSCULAR HEMOGLOBIN 28.1 PG (27.0-34.0); MEAN CORPUSCULAR HGB CONC 32.9 % (32.0-36.0); MEAN PLATELET VOLUME 7.7 FL (7.0-11.0); MONO % 12.4 % (0.0-8.0); MONOCYTE # 0.6 TH/MM3 (0-0.9); NEUT % 52.6 % (16.0-70.0); PLATELET COUNT 193 TH/MM3 (150-450); RED BLOOD COUNT 4.64 MIL/MM3 (4.00-5.30); RED CELL DISTRIBUTION WIDTH 14.6 % (11.6-17.2); WHITE BLOOD COUNT 4.9 TH/MM3 (4.0-11.0)
[2018-03-24 10:26] LABS: PROTHROMBIN TIME - PATIENT 10.3 SEC (9.8-11.6)
[2018-03-24 10:35] LABS: BICARBONATE 26.9 MEQ/L (21.0-32.0); CALCIUM 9.6 MG/DL (8.5-10.1); CREATININE 0.86 MG/DL (0.50-1.00)
--- NOTE | 2018-03-24 16:55 | EKG ---
Date Performed: 03/24/2018 Time Performed: 08:37:13 PTAGE: 88 years EKG: NORMAL Sinus rhythm 60 HERTZ ARTIFACT ABNORMAL RHYTHM ECG PREVIOUS TRACING : 12/08/2017 08.14 Since previous tracing, no significant change noted DOCTOR: Dannie Stein Interpretating Date/Time 03/24/2018 16:54:35
== END 2018-03-24 19:44 | disposition home or self-care (01) ==
LOC: NEPE 08:06
DX: R21 Rash and other nonspecific skin eruption (principal); I48.91 Unspecified atrial fibrillation; Z79.01 Long term (current) use of anticoagulants; Z79.82 Long term (current) use of aspirin
CPT/HCPCS: 80048; 85025; 85610; 85730; 93005; 99284